=== PATIENT | male | born 1955 | race Caucasian/White ===

== ENCOUNTER → 2018-01-31 10:04 | Outpatient (CLI) | payer OTHER, SELFPAY ==
[2018-01-31 10:33] LABS: Add Manual Diff / Slide Review NO; Basophils Percent Auto 0.1 % (0-2); Eosinophils Percent Auto 1.2 % (2-4); Hematocrit 45.3 % (41-53); Hemoglobin 16.2 g/dL (13.5-17.5); Mean Corpuscular HGB Conc 35.7 % (30-36); Mean Corpuscular Hemoglobin 31.9 PG (26-34); Mean Corpuscular Volume 89.3 fL (80-100); Monocytes Percent Auto 6.5 % (3-14); Neutrophils Absolute Auto 4400 /uL (3000-5900); Neutrophils Percent Auto 63.2 % (50-75); Platelet Count 168 X10^3/uL (150-400); Red Blood Cell Count 5.07 X10^6/uL (4.5-5.9); Red Cell Distribution Width 13.1 % (11.6-14.8)
[2018-01-31 10:44] LABS: Alanine Aminotransferase 33 IU/L (21-72); Albumin 4.2 g/dL (3.5-5.0); Albumin Globulin Ratio 1.7 (1.0-2.8); Alkaline Phosphatase 96 U/L (38-126); Aspartate Aminotransferase 26 IU/L (17-59); BUN Creatinine Ratio 26.7 (6-22); Bilirubin Total 0.7 mg/dL (0.2-1.3); Blood Urea Nitrogen 24 mg/dL (9-20); Calcium 9.2 mg/dL (8.4-10.2); Carbon Dioxide 28 mmol/L (22-32); Chloride 104 mmol/L (98-107); Cholesterol 140 mg/dL (140-199); Estimated Glomerular Filt Rate > 60.0 mL/min (>60); Globulin 2.5 g/dL (1.7-4.1); Glucose 103 mg/dL (80-110); HDL Cholesterol 34 mg/dL (40-60); HEMOLYSIS 29 (0-50); LDL Cholesterol Calculated 63 mg/dL (<100); Potassium 4.3 mmol/L (3.4-5.1); Sodium 141 mmol/L (137-145); Total Protein 6.7 g/dL (6.3-8.2); Triglycerides 215 mg/dL (35-150)
[2018-01-31 11:30] LABS: Thyroid Stimulating Hormone 2.68 uIU/mL (0.47-4.68)
== END ==
PROVIDERS: PCP Family Medicine; Visit Provider Family Medicine
DX: Z00.00 Encounter for general adult medical examination without abnormal findings (principal)
CPT/HCPCS: 36415; 80053; 80061; 84153; 84443; 85025

== ENCOUNTER → 2018-02-14 14:08 | Outpatient (CLI) | payer OTHER, SELFPAY ==
--- NOTE | 2018-02-14 | DI.ECHO.S_ITS ---
[place] [facility]---------+ [facility] +---------+ : : [address] : : : : [id number] : : : : Phone: [phone]+ Echocardiogram Report + + :Name: CANDIE JON Study Date: 02/14/2018 Height: 68 in : :[facility] Weight: 204 lb : : Gender: Male BSA: 2.1 m2 : :: 1955 Age: 63 yrs BP: 168/72 mmHg: :Reason For Study: Cardiomyopathy, Hypertrophic : :Ordering Physician: Carolyn : :Elina Novoa Performed By: Porsche Kee : :Referring: Dr. Devon Delarosa : + + Interpretation Summary 1) Moderate septal hypertrophy (septal thickness 1.8cm, posterior wall thickness 1.0cm) with normal size, wall motion, and systolic function (EF 65- 70%). 2) Normal right ventricular size and function. 3) The left ventricular outflow velocity with valsalva is 2.1 m/s, suggesting a peak LVOT gradient of 18.5mmHg (mild) 4) There is systolic anterior motion of the mitral valve. 5) No significant valvular stenosis or regurgitation prsent. 6) Compared to the Echo done 07/30/2015, no significant change. Procedure: A two-dimensional transthoracic echocardiogram with color flow and Doppler was performed. The study quality was technically adequate. Comparison is made with the echocardiogram of 12-06-16. The heart rate ranged between 44-45 bpm during the study. Left Ventricle: The left ventricle is normal in size. There is moderate asymmetric left ventricular hypertrophy. The left ventricular outflow velocity with valsalva is 2.1 m/s. The ejection fraction is estimated to be 65-70%. Assessment of diastolic parameters suggests a pseudonormalization pattern, consistent with elevated filling pressures. Right Ventricle: The right ventricle grossly appears normal in size with probable normal systolic function. Atria: The left atrium is moderately dilated. Right atrial size is normal. The interatrial septum is intact with no evidence for an atrial septal defect. Mitral Valve: The mitral valve is normal in structure and function. There is systolic anterior motion of the mitral valve. There is trace mitral regurgitation. Aortic Valve: The aortic valve is trileaflet. The aortic valve opens well. There is no aortic valve stenosis. There is mild aortic regurgitation. Tricuspid Valve: The tricuspid valve is normal in structure and function. There is trace tricuspid regurgitation. The right ventricular systolic pressure is estimated at 26 mmHg assuming a right atrial pressure of 3 mm Hg. Pulmonic Valve: The pulmonic valve is normal in structure and function. There is trace pulmonic regurgitation. Great Vessels: The aortic root is normal size. The dimensions of the ascending aorta are normal. The IVC is of normal diameter and collapses greater than 50% with a sniff. This suggests a low right atrial pressure of 3 mm Hg. Pericardium/ Pleura There is no pericardial effusion. There is no pleural effusion. MMode/2D Measurements & Calculations LVIDd: 4.8 cm Ao root diam: 3.4 cm LVIDs: 2.6 cm Aortic Jxn: 2.7 cm FS: 44.5 % asc Aorta Diam: 3.2 cm IVSd: 1.8 cm Ao Arch Diam (Prox Trans): 2.8 cm LVPWd: 1.0 cm LV foster. diameter/BSA (cm/m^2): 2.3 LV sys. diameter/BSA (cm/m^2): 1.3 LA dimension: 4.7 cm RA long axis: 5.3 cm LA A2 area: 25.5 cm2 RA area: 20.9 cm2 LA A4 area: 23.9 cm2 RA vol: 70.5 ml LA length (vol): 6.0 cm RA : 34.2 ml/m2 LA vol: 86.2 ml IVC diam: 2.0 cm LA vol index: 41.8 ml/m2 RVDd major: 5.6 cm RVD1 (basal): 4.4 cm RVD2 (mid): 3.7 cm Doppler Measurements & Calculations Ao V2 max: 182.1 cm/sec MV E max mc: 101.8 cm/sec Ao V2 mean: 118.0 cm/sec MV A max mc: 94.9 cm/sec Ao max P.3 mmHg MV E/A: 1.1 Ao mean P.7 mmHg Med Peak E' Mc: 6.7 cm/sec Ao V2 VTI: 45.8 cm E/E' med: 15.1 Lat Peak E' Mc: 8.0 cm/sec E/E' lat: 12.7 E/e' average: 13.9 MV dec time: 0.25 sec MV P1/2t: 72.7 msec TR max mc: 240.8 cm/sec MV P1/2t max mc: 101.3 cm/sec TR max P.2 mmHg MVA(P1/2t): 3.0 cm2 PA V2 max: 128.0 cm/sec PA V2 mean: 79.9 cm/sec PA mean P.1 mmHg PA Accel Time: 0.17 sec Reading Physician:04:52 PM
== END ==
PROVIDERS: PCP Family Medicine; Visit Provider Internal Medicine Cardiovascular Disease
DX: I42.2 Other hypertrophic cardiomyopathy (principal); I35.1 Nonrheumatic aortic (valve) insufficiency
CPT/HCPCS: 93306

== ENCOUNTER → 2019-01-30 10:27 | Outpatient (CLI) | payer OTHER, SELFPAY ==
[2019-01-30 11:57] LABS: Add Manual Diff / Slide Review NO; Alanine Aminotransferase 44 IU/L (21-72); Albumin 4.2 g/dL (3.5-5.0); Albumin Globulin Ratio 1.6 (1.0-2.8); Alkaline Phosphatase 92 U/L (38-126); Aspartate Aminotransferase 23 IU/L (17-59); BUN Creatinine Ratio 26.3 (6-22); Basophils Absolute Auto 0 /uL (0-100); Basophils Percent Auto 0.2 % (0-2); Blood Urea Nitrogen 21 mg/dL (9-20); Carbon Dioxide 27 mmol/L (22-32); Chloride 108 mmol/L (98-107); Cholesterol 155 mg/dL (140-199); Eosinophils Absolute Auto 100 /uL (0-450); Eosinophils Percent Auto 0.9 % (2-4); Estimated Glomerular Filt Rate > 60.0 mL/min (>60); Globulin 2.6 g/dL (1.7-4.1); Glucose 118 mg/dL (80-110); HDL Cholesterol 42 mg/dL (40-60); HEMOLYSIS < 15 (0-50); Hematocrit 45.8 % (41-53); Hemoglobin 16.2 g/dL (13.5-17.5); LDL Cholesterol Calculated 98 mg/dL (<100); Lymphocytes Absolute Auto 2000 /uL (1100-4500); Lymphocytes Percent Auto 33.9 % (25-40); Mean Corpuscular HGB Conc 35.4 % (30-36); Mean Corpuscular Hemoglobin 31.7 PG (26-34); Mean Corpuscular Volume 89.5 fL (80-100); Monocytes Absolute Auto 400 /uL (0-900); Monocytes Percent Auto 7.1 % (3-14); Neutrophils Absolute Auto 3400 /uL (1500-7000); Neutrophils Percent Auto 57.9 % (50-75); Platelet Count 172 X10^3/uL (150-400); Potassium 4.1 mmol/L (3.4-5.1); Red Blood Cell Count 5.12 X10^6/uL (4.5-5.9); Red Cell Distribution Width 13.3 % (11.6-14.8); Sodium 142 mmol/L (137-145); Total Protein 6.8 g/dL (6.3-8.2); Triglycerides 77 mg/dL (35-150); White Blood Cell Count 5.8 X10^3/uL (4.5-11.0)
[2019-01-30 12:26] LABS: Prostate Specific Antigen Scrn 4.18 ng/mL (0.1-4.0)
== END ==
PROVIDERS: PCP Family Medicine; Visit Provider Family Medicine
DX: N13.8 Other obstructive and reflux uropathy (principal); N40.1 Benign prostatic hyperplasia with lower urinary tract symptoms; Z00.00 Encounter for general adult medical examination without abnormal findings
CPT/HCPCS: 36415; 80053; 80061; 84443; 85025; G0103

== ENCOUNTER → 2019-04-25 08:04 | Outpatient (CLI) | payer OTHER, SELFPAY ==
--- NOTE | 2019-04-25 | DI.ECHO.S_ITS ---
[place] +---------+ [facility] +---------+ : : [address] : : : : [id number] : : : : Phone: [phone]+ Echocardiogram Report + + :Name: CANDIE JON Study Date: 04/25/2019 Height: 68 in : :[facility] Weight: 200 lb : : Gender: Male BSA: 2.0 m2 : :: 1955 Age: 64 yrs BP: 180/84 mmHg: :Reason For Study: Cardiomyopathy, Hypertrophic : :Ordering Physician: Carolyn : :Elina Novoa Performed By: Porsche Kee : :Referring: Dr. Devon Delarosa : + + Interpretation Summary 1) Severe septal hypertrophy (septal thickness 2.2cm, posterior wall thickness 1.1cm) with normal size, wall motion, and systolic function (EF 65-70%). 2) Normal right ventricular size and function. 3) LVOT gradient not done with valsalva but resting LVOT gradient is normal. 4) There is systolic anterior motion of the chordal apparatus 5) No significant valvular stenosis or regurgitation prsent. 6) Compared to the Echo done 02/14/2018, septal thickness has increased from 1.8cm to 2.2 cm on this study. Procedure: A two-dimensional transthoracic echocardiogram with color flow and Doppler was performed. The study quality was technically adequate. Comparison is made with the echocardiogram of 02-14-18. The patient was in normal sinus rhythm during the exam. Left Ventricle: The left ventricle is normal in size. There is severe asymmetric left ventricular hypertrophy. The ejection fraction is estimated to be 65-70%. Diastolic parameters suggest a pseudonormalization pattern, consistent with probable elevated filling pressures. Right Ventricle: The right ventricle grossly appears normal in size with probable normal systolic function. Atria: The left atrium is moderately dilated. The right atrium is mild to moderately dilated. The interatrial septum is intact with no evidence for an atrial septal defect. Mitral Valve: The mitral valve is normal in structure and function. There is systolic anterior motion of the chordal apparatus. There is no mitral regurgitation noted. Aortic Valve: The aortic valve opens well. There is mild aortic valve sclerosis. There is mild aortic regurgitation. Tricuspid Valve: The tricuspid valve is normal in structure and function. There is trace tricuspid regurgitation. The right ventricular systolic pressure is estimated to be at least 34 mmHg based on an estimated right atrial pressure of 3 mm Hg. Pulmonic Valve: The pulmonic valve is normal in structure and function. There is trace pulmonic regurgitation. Great Vessels: The aortic root is normal size. The dimensions of the ascending aorta are normal. The aortic arch is normal in size. The IVC is of normal diameter and collapses greater than 50% with a sniff. This suggests a low right atrial pressure of 3 mm Hg. Pericardium/ Pleura There is no pericardial effusion. There is no pleural effusion. MMode/2D Measurements & Calculations LVIDd: 4.4 cm Ao root diam: 3.6 cm LVIDs: 2.2 cm Aortic Jxn: 2.8 cm FS: 50.8 % asc Aorta Diam: 3.1 cm EPSS: 0.36 cm Ao Arch Diam (Prox Trans): 2.8 cm IVSd: 2.2 cm LVPWd: 1.1 cm LV foster. diameter/BSA (cm/m^2): 2.2 LV sys. diameter/BSA (cm/m^2): 1.1 LA dimension: 4.7 cm RA long axis: 4.9 cm LA A2 area: 25.7 cm2 RA area: 21.3 cm2 LA A4 area: 23.4 cm2 RA vol: 79.7 ml LA length (vol): 5.5 cm RA : 39.0 ml/m2 LA vol: 92.1 ml IVC diam: 1.8 cm LA vol index: 45.1 ml/m2 RVDd major: 5.9 cm RVD1 (basal): 4.8 cm RVD2 (mid): 3.6 cm Doppler Measurements & Calculations Ao V2 max: 190.5 cm/sec MV E max mc: 88.0 cm/sec Ao V2 mean: 137.4 cm/sec MV A max mc: 104.5 cm/sec Ao max P.5 mmHg MV E/A: 0.84 Ao mean P.5 mmHg Med Peak E' Mc: 6.4 cm/sec Ao V2 VTI: 48.0 cm E/E' med: 13.7 Lat Peak E' Mc: 6.7 cm/sec E/E' lat: 13.1 E/e' average: 13.4 MV dec time: 0.23 sec MV P1/2t: 71.9 msec TR max mc: 279.2 cm/sec MV P1/2t max mc: 88.3 cm/sec TR max P.2 mmHg MVA(P1/2t): 3.1 cm2 PA V2 max: 125.2 cm/sec PA V2 mean: 75.6 cm/sec PA mean P.8 mmHg PA Accel Time: 0.12 sec Reading Physician:01:30 PM
== END ==
PROVIDERS: Family Provider Family Medicine; PCP Family Medicine; Visit Provider Internal Medicine Cardiovascular Disease
DX: I35.1 Nonrheumatic aortic (valve) insufficiency (principal); I42.2 Other hypertrophic cardiomyopathy
CPT/HCPCS: 93306

== ENCOUNTER → 2020-02-17 13:01 | Outpatient (CLI) | payer OTHER, SELFPAY ==
--- NOTE | 2020-02-17 13:09 | DIET.PN ---
Dietary Progress Note Assessment: 65y M referred to nutrition for weight management and HTN. pt wants to lose 30#, at 57y started to gain weight after, sitting at desk, long commute, overtime, retired now translating, sometimes can go all day without eating then loads up at night. Usual Day: wakes 730am feels rested uses cpap drinks couple cups coffee c stevia and heavy cream B(11am): scrambled eggs c cheese L(1-2pm): salad (lettuce, carrots, celery, tuna, olive oil, apple cider vinegar, gorgonzola, olives) D: fish and vegetables, grilled chicken, if in a hurry mashed potatoes from [employer] Sn: no salt, mixed nuts etoh: budwiser beer or two last snack is 10pm, falls asleep 1am sleeps 7h per night currently walking on treadmill 60 min (2-3d/w) walk up to run 6- five minute intervals, 3.1mph for second 30min Pt feels best option would be eat at 6pm, do treadmill at 7pm (zuluaga 560kcals with this workout) have free weights and pull up bar in weights but not currently using HT: 5'8 WT: 200# BMI: 30.3 obese We tested pt's body fat percentage today in office was 24.6% which is fair, goal to get between 20-22%. Labs: FBG 111 H, TC WNL Nutrition Diagnosis: obesity r/t physical inactivity and inadequate intake of fruits/veggies aeb pt walks treadmill at best 2-3days per week, consumes 2-3 servings F/V per day, BMI 30.3, pt has HTN. Interventions: 1. Discussed balanced plate method for nutritional adequacy and good health, 1/4 protein, 1/4 complex carbs/starchy veg, 1/2 fruits and veggies. 2. Discussed Hunger Scale, to not wait all day to eat, but to eat when hungry and notice when starting to get hungry so can prepare healthy meal following plate method. 3. Discussed current physical activity routine with goal of cardio (outlined above) 3d/w with strength training 2x/w and stretching daily in am. Monitoring/Evaluations: Pt is scheduled for f/u in 3mo to assess progress.
== END ==
PROVIDERS: Family Provider Family Medicine; PCP Family Medicine; Referring Provider Family Medicine; Visit Provider Family Medicine
DX: E66.9 Obesity, unspecified (principal); I10 Essential (primary) hypertension; Z68.30 Body mass index [BMI] 30.0-30.9, adult; Z71.3 Dietary counseling and surveillance
CPT/HCPCS: 97802

== ENCOUNTER → 2020-04-20 12:51 | Outpatient (CLI) | payer OTHER, SELFPAY ==
[2020-04-20 14:25] LABS: Add Manual Diff / Slide Review NO; Basophils Absolute Auto 0 /uL (0-100); Basophils Percent Auto 0.2 % (0-2); Eosinophils Absolute Auto 100 /uL (0-450); Eosinophils Percent Auto 1.1 % (2-4); Hematocrit 44.6 % (41-53); Hemoglobin 15.9 g/dL (13.5-17.5); Lymphocytes Absolute Auto 2200 /uL (1100-4500); Lymphocytes Percent Auto 30.8 % (25-40); Mean Corpuscular HGB Conc 35.6 % (30-36); Mean Corpuscular Volume 90.1 fL (80-100); Monocytes Absolute Auto 500 /uL (0-900); Monocytes Percent Auto 6.6 % (3-14); Neutrophils Absolute Auto 4300 /uL (1500-7000); Neutrophils Percent Auto 61.3 % (50-75); Platelet Count 166 X10^3/uL (150-400); Red Blood Cell Count 4.95 X10^6/uL (4.5-5.9); Red Cell Distribution Width 13.2 % (11.6-14.8); White Blood Cell Count 7.1 X10^3/uL (4.5-11.0)
[2020-04-20 15:36] LABS: Alanine Aminotransferase 45 IU/L (<50); Albumin 4.1 g/dL (3.5-5.0); Albumin Globulin Ratio 1.6 (1.0-2.8); Alkaline Phosphatase 85 U/L (38-126); Aspartate Aminotransferase 35 IU/L (17-59); BUN Creatinine Ratio 18.2 (6-22); Blood Urea Nitrogen 16 mg/dL (9-20); Calcium 8.9 mg/dL (8.4-10.2); Carbon Dioxide 29 mmol/L (22-32); Chloride 106 mmol/L (98-107); Cholesterol 150 mg/dL (140-199); Estimated Glomerular Filt Rate > 60.0 mL/min (>60); Globulin 2.5 g/dL (1.7-4.1); Glucose 101 mg/dL (80-110); HDL Cholesterol 36 mg/dL (40-60); HEMOLYSIS < 15 (0-50); LDL Cholesterol Calculated 79 mg/dL (<100); Potassium 4.4 mmol/L (3.4-5.1); Sodium 138 mmol/L (137-145); Thyroid Stimulating Hormone 1.66 uIU/mL (0.47-4.68); Total Protein 6.6 g/dL (6.3-8.2); Triglycerides 177 mg/dL (35-150)
[2020-04-20 16:05] LABS: Prostate Specific Antigen Scrn 3.99 ng/mL (0.1-4.0)
== END ==
PROVIDERS: Family Provider Family Medicine; PCP Family Medicine; Referring Provider Family Medicine; Visit Provider Family Medicine
DX: I10 Essential (primary) hypertension (principal); Z12.5 Encounter for screening for malignant neoplasm of prostate
CPT/HCPCS: 36415; 80053; 80061; 84443; 85025; G0103

== ENCOUNTER → 2020-06-18 11:58 | Outpatient (CLI) | payer OTHER, SELFPAY ==
--- NOTE | 2020-06-18 12:03 | DIET.PN ---
Dietary Progress Note 65y M visiting RD for f/u after 4mo for assistance c weight loss. Pt reports not being able to consistently follow his plan secondary to overwork. Pt wakes up and starts working before his first cup of coffee and often does not stop until 6-7pm. Pt feels his job is rewarding, enjoyable, and intellectually stimulating, but he doesn't take time to prepare himself lunch or stop early enough each day to fit in his workout. He works project based so once one is done he jumps right into the next. Pt reports he enjoys his workout but it takes an hour so is not feasible to do after dinner when he is currently eating around 8pm. Pt is missing his usual lunchtime salad as he works through lunch hour. Pt feels his stools have changed because of the lower fiber diet and is interested in a detox program. Encouraged pt to focus more on self-care, to create a daily schedule where he can give himself enough time for lunch and stopping by 5pm for an earlier dinner so he has the time he needs for a workout. Discussed lungs, skin, and liver as detox organs. Encouraged pt to commit to his workouts as deep breathing and sweating are detoxifying. Provided pt handout on liver supportive foods including a variety of fresh vegetables. Pt feels posting his 6 month goal at his work station to see it daily along with creating a daily schedule will help him stay accountable to his health and vitality goals. He will focus on exercise and a daily salad to support his health and natural detoxification. f/u in 6mo to assess progress and problem solve barriers.
== END ==
PROVIDERS: Family Provider Family Medicine; PCP Family Medicine; Referring Provider Family Medicine; Visit Provider Family Medicine
DX: E66.9 Obesity, unspecified (principal); Z71.3 Dietary counseling and surveillance
CPT/HCPCS: 97803

== ENCOUNTER → 2021-02-02 09:13 | Outpatient (CLI) | payer OTHER, SELFPAY ==
[2021-02-02 13:47] LABS: COVID19 -Nasal RAPID Negative (Negative)
== END ==
PROVIDERS: Family Provider Family Medicine; PCP Family Medicine; Referring Provider Student in an Organized Health Care Education/Training Program; Visit Provider Student in an Organized Health Care Education/Training Program
DX: R05 Cough (principal); Z20.822 Contact with and (suspected) exposure to COVID-19
CPT/HCPCS: 87635

== ENCOUNTER → 2021-06-06 09:55 | Outpatient (CLI) | payer OTHER, SELFPAY ==
[2021-06-06 13:47] LABS: Alanine Aminotransferase 51 IU/L (<50); Albumin Globulin Ratio 1.8 (1.0-2.8); Alkaline Phosphatase 98 U/L (38-126); Aspartate Aminotransferase 29 IU/L (17-59); BUN Creatinine Ratio 18.5 (6-22); Bilirubin Total 0.6 mg/dL (0.2-1.3); Blood Urea Nitrogen 17 mg/dL (9-20); Calcium 9.3 mg/dL (8.4-10.2); Carbon Dioxide 31 mmol/L (22-32); Chloride 104 mmol/L (98-107); Cholesterol 139 mg/dL (140-199); Estimated Glomerular Filt Rate > 60.0 mL/min (>60); Globulin 2.2 g/dL (1.7-4.1); Glucose 113 mg/dL (80-110); HDL Cholesterol 39 mg/dL (40-60); HEMOLYSIS < 15 (0-50); LDL Cholesterol Calculated 86 mg/dL (<100); Potassium 4.9 mmol/L (3.4-5.1); Sodium 140 mmol/L (137-145); Total Protein 6.2 g/dL (6.3-8.2); Triglycerides 68 mg/dL (35-150)
[2021-06-06 14:08] LABS: Prostate Specific Antigen Scrn 4.24 ng/mL (0.1-4.0)
== END ==
PROVIDERS: Family Provider Family Medicine; PCP Internal Medicine; Referring Provider Internal Medicine; Visit Provider Internal Medicine
DX: I10 Essential (primary) hypertension (principal); N13.8 Other obstructive and reflux uropathy; N40.1 Benign prostatic hyperplasia with lower urinary tract symptoms; R01.1 Cardiac murmur, unspecified; Z12.5 Encounter for screening for malignant neoplasm of prostate
CPT/HCPCS: 36415; 80053; 80061; G0103

== ENCOUNTER → 2022-06-06 08:37 | Outpatient (CLI) | payer MEDICARE, OTHER, SELFPAY ==
[2022-06-06 10:06] LABS: HEMOLYSIS < 15 (0-50)
[2022-06-06 10:14] LABS: Alanine Aminotransferase 37 IU/L (<50); Albumin Globulin Ratio 1.7 (1.0-2.8); Alkaline Phosphatase 103 U/L (38-126); Aspartate Aminotransferase 27 IU/L (17-59); BUN Creatinine Ratio 20.7 (6-22); Bilirubin Total 0.8 mg/dL (0.2-1.3); Blood Urea Nitrogen 18 mg/dL (9-20); Calcium 9.2 mg/dL (8.4-10.2); Carbon Dioxide 29 mmol/L (22-32); Chloride 104 mmol/L (98-107); Estimated Glomerular Filt Rate > 60 mL/min (>60); Globulin 2.4 g/dL (1.7-4.1); Glucose 114 mg/dL (80-110); Potassium 4.4 mmol/L (3.4-5.1); Sodium 139 mmol/L (137-145); Total Protein 6.4 g/dL (6.3-8.2)
[2022-06-06 16:57] LABS: Prostate Specific Antigen 5.31 ng/mL (0.10-4.00)
== END ==
PROVIDERS: Family Provider Family Medicine; PCP Internal Medicine; Referring Provider Internal Medicine; Visit Provider Internal Medicine
DX: R97.20 Elevated prostate specific antigen [PSA] (principal); I10 Essential (primary) hypertension; Z79.899 Other long term (current) drug therapy
CPT/HCPCS: 36415; 80053; 84153

== ENCOUNTER 2022-06-06 18:17 | Emergency (ER) | payer MEDICARE, OTHER, SELFPAY ==
--- NOTE | 2022-06-06 18:25 | DI.RAD.S_ITS ---
PROCEDURE: XR CHEST 1V INDICATIONS: chest pain TECHNIQUE: One view of the chest was acquired. COMPARISON: [facility], , CHEST 1 VIEW, 02/22/2017, 1:18. FINDINGS: Surgical changes and devices: None. Lungs and pleura: No acute consolidation. Linear opacities in the lung bases are redemonstrated likely representing atelectasis or scarring. No pleural effusions or pneumothorax. Mediastinum: Mediastinal contours appear normal. Heart size is normal. Bones and chest wall: No suspicious bony lesions. Overlying soft tissues appear unremarkable. IMPRESSION: 1. No acute cardiopulmonary disease. Dictated by: Jimi Sethi M.D. on 06/06/2022 at 20:57 Approved by: Jimi Sethi M.D. on 06/06/2022 at 21:01
[2022-06-06 18:27] VITALS: BP 213/98; PULSE 47; RESP 16; TEMP 36.4; O2SAT 98; BMI 31.3
[2022-06-06 19:24] LABS: Add Manual Diff / Slide Review NO; Basophils Absolute Auto 0 /uL (0-100); Basophils Percent Auto 0.4 % (0-2); Eosinophils Absolute Auto 100 /uL (0-450); Eosinophils Percent Auto 1.2 % (2-4); Hematocrit 45.4 % (41-53); Hemoglobin 16.1 g/dL (13.5-17.5); Lymphocytes Absolute Auto 2400 /uL (1100-4500); Lymphocytes Percent Auto 29.9 % (25-40); Mean Corpuscular HGB Conc 35.4 % (30-36); Mean Corpuscular Hemoglobin 31.4 PG (26-34); Mean Corpuscular Volume 88.9 fL (80-100); Monocytes Absolute Auto 500 /uL (0-900); Monocytes Percent Auto 5.6 % (3-14); Neutrophils Absolute Auto 5200 /uL (1500-7000); Neutrophils Percent Auto 62.9 % (50-75); Platelet Count 190 X10^3/uL (150-400); Red Blood Cell Count 5.11 X10^6/uL (4.5-5.9); Red Cell Distribution Width 13.6 % (11.6-14.8); White Blood Cell Count 8.2 X10^3/uL (4.5-11.0)
[2022-06-06 19:26] LABS: Alanine Aminotransferase 42 IU/L (<50); Albumin 4.6 g/dL (3.5-5.0); Albumin Globulin Ratio 1.6 (1.0-2.8); Alkaline Phosphatase 120 U/L (38-126); Aspartate Aminotransferase 38 IU/L (17-59); BUN Creatinine Ratio 21.3 (6-22); Bilirubin Total 0.8 mg/dL (0.2-1.3); Blood Urea Nitrogen 16 mg/dL (9-20); Calcium 9.3 mg/dL (8.4-10.2); Carbon Dioxide 25 mmol/L (22-32); Chloride 104 mmol/L (98-107); Creatine Kinase 113 U/L (55-170); Estimated Glomerular Filt Rate > 60 mL/min (>60); Globulin 2.8 g/dL (1.7-4.1); Glucose 91 mg/dL (80-110); Lipase 58 U/L (23-300); Magnesium 2.2 mg/dL (1.6-2.3); Potassium 4.1 mmol/L (3.4-5.1); Sodium 138 mmol/L (137-145); Total Protein 7.4 g/dL (6.3-8.2)
[2022-06-06 19:34] LABS: NT-proBNP (BNP-Adult 18+) 551 pg/mL (<125)
[2022-06-06 19:35] LABS: INR 1.1 (0.9-1.3); Prothrombin Time 12.4 SECONDS (10.1-12.7)
[2022-06-06 19:37] LABS: Troponin I 0.013 ng/mL (0.01-0.034)
[2022-06-06 19:38] LABS: PTT Partial Thromboplastin Tim 28 SECONDS (26-36)
[2022-06-06 19:40] LABS: CKMB % Relative Index 3.4 % (1.5-5.0); Creatine Kinase MB 3.81 ng/mL (<2.37); HEMOLYSIS 39 (0-50)
[2022-06-06 21:07] LABS: Bacteria Urine Occasional (0-1); Culture Indicated Urine Cult Not Indicated; RBC Urine None Seen (0-5/HPF); Squamous Epithelial Cell Urine None Seen (0-5/HPF); WBC Urine None Seen (0-5/HPF)
[2022-06-06 21:17] VITALS: BP 208/83; PULSE 68
--- NOTE | 2022-06-06 21:55 | ED.GENADULT ---
HPI - General Adult General Chief complaint: Hypertension Stated complaint: Left Arm Pain/Nauseous/High BP Time Seen by Provider: 06/06/22 21:55 History of Present Illness HPI narrative: 67-year-old gentleman with history of hypertension and hypertrophic cardiomyopathy has been doing well, notes that he had COVID approximately 6 weeks ago with symptoms entirely resolved at this point. Presents complaining of left arm pain that has been bothering him for about 3 weeks today he was ?poking around in my armpit? and found a sore spot. It is not related to exertion position, neck position and is reproducible with palpation but not with motion otherwise. He complains of mild tenderness in the biceps and into the elbow. Because of the pain, he took his blood pressure and noted it to be quite elevated this concerned him and prompted the ER visit. He did take his usual evening losartan prior to presentation in the emergency department along with 2 aspirin. He notes no overt chest pain, cough, dyspnea, orthopnea, headaches, abdominal pain, vomiting, diarrhea, lower extremity edema. Related Data Previous Rx's Medication Instructions Recorded mometasone 0.1 % topical solution See Rx Instructions topical BID 06/07/21 #60 mL erythromycin 5 mg/gram (0.5 %) eye See Rx Instructions .Route 02/28/22 ointment .COMPLEX #3.5 grams losartan 50 mg tablet 50 mg PO DAILY #90 tabs 05/18/22 Allergies Allergy/AdvReac Type Severity Reaction Status Date / Time No Known Drug Allergies Allergy Verified 06/06/22 18:31 Review of Systems Review of Systems Narrative: Remainder of complete review of systems is otherwise unremarkable except for that included in the HPI. Patient History Medical History (Updated 06/06/22 @ 22:31 by Lidia Gallagher MD) Benign prostatic hyperplasia with urinary obstruction (10/12/16) Body mass index (BMI) of 30.0 to 30.9 in adult (10/12/16) COVID-19 (~04/2021) Elevated PSA Essential hypertension Heart murmur (07/22/15) Hyperglycemia Sleep apnea Social History Smoking Status: Former smoker Smoking Status: Former smoker alcohol intake frequency: a few times a week Substance Use Type: does not use Exam Initial Vital Signs Initial Vital Signs: Vital Signs Temperature 97.6 F 06/06/22 18:27 Pulse Rate 47 L 06/06/22 18:27 Respiratory Rate 16 06/06/22 18:27 Blood Pressure 213/98 H 06/06/22 18:27 Pulse Oximetry 98 06/06/22 18:27 Oxygen Delivery Method 06/06/22 18:27 General: Healthy appearing, in no acute distress. Able to give a complete and coherent history. Well-nourished well-developed HEENT: Moist mucous membranes, normal sclera with reactive pupils, Neck: No JVD, supple, no cervical spine tenderness Respiratory: Lungs are clear to auscultation, no wheezing no rales no rhonchi. Full and symmetrical air movement. He complained of a point tender spot left mid axillary line approximately the level of his nipple that is now not bothering him Cardiac: Regular rate and rhythm no murmurs no bruits Abdomen: Soft, nontender, good bowel tones, no flank pain Skin: Warm and dry, no rashes Neurologic: Grossly neurologically intact with no obvious asymmetries or abnormalities Extremities: No trauma, well perfused. Left arm and shoulder are neurovascularly intact. He has some minor tenderness at the shoulder joint with abduction and external rotation. Elbow and wrist are nontender and have full range of motion. Psych: Cooperative, appropriate insight and affect Course Orders Ordered: ED Orders 06/06/22 18:25 XR chest 1V Stat COVID19 -Nasal RAPID/Pre-Proc Stat EKG-12 Lead Stat 06/06/22 18:52 BNP [NT-proBNP (BNP-Adult 18+)] Stat Complete Blood Count AUTO DIFF Stat Comprehensive Metabolic Panel Stat Lipase Stat Magnesium Stat Partial Thromboplastin Time Stat Prothrombin Time INR Stat Troponin & CK Cardiac Panel Stat 06/06/22 20:47 Urine Microscopic Stat Discontinued Medications Aspirin (Aspirin 81 Mg Chew Tab) 324 mg PO NOW ONE Stop: 06/06/22 18:26 Last Admin: 06/06/22 18:32 Dose: Not Given Documented By: [facility] Vital Signs Vital signs: Vital Signs - 8 hr 06/06/22 18:27 06/06/22 21:17 Temperature 97.6 F Pulse Rate 47 L 68 Respiratory Rate 16 Blood Pressure 213/98 H 208/83 H Pulse Oximetry 98 Oxygen Delivery Method Room Air Medical Decision Making Lab Data Result diagrams: 06/06/22 18:52 06/06/22 18:52 Labs: Lab Results 06/06/22 06/06/22 06/06/22 Range/Units 18:52 18:52 18:52 WBC 8.2 (4.5-11.0) X10^3/uL RBC 5.11 (4.5-5.9) X10^6/uL Hgb 16.1 (13.5-17.5) g/dL Hct 45.4 (41-53) % MCV 88.9 (80-100) fL MCH 31.4 (26-34) PG MCHC 35.4 (30-36) % RDW 13.6 (11.6-14.8) % Plt Count 190 (150-400) X10^3/uL Neut % (Auto) 62.9 (50-75) % Lymph % (Auto) 29.9 (25-40) % Floyd % (Auto) 5.6 (3-14) % Eos % (Auto) 1.2 L (2-4) % Baso % (Auto) 0.4 (0-2) % Neut # (Auto) 5200 (6268-1775) /uL Lymph # (Auto) 2400 (9166-1233) /uL Floyd # (Auto) 500 (0-900) /uL Eos # (Auto) 100 (0-450) /uL Baso # (Auto) 0 (0-100) /uL PT 12.4 (10.1-12.7) SECONDS INR 1.1 (0.9-1.3) APTT 28 (26-36) SECONDS Sodium 138 (137-145) mmol/L Potassium 4.1 (3.4-5.1) mmol/L Chloride 104 (98-107) mmol/L Carbon Dioxide 25 (22-32) mmol/L BUN 16 (9-20) mg/dL Creatinine 0.75 (0.66-1.25) mg/dL Estimated GFR > 60 (>60) mL/min BUN/Creatinine Ratio 21.3 (6-22) Glucose 91 (80-110) mg/dL Calcium 9.3 (8.4-10.2) mg/dL Magnesium 2.2 (1.6-2.3) mg/dL Total Bilirubin 0.8 (0.2-1.3) mg/dL AST 38 (17-59) IU/L ALT 42 (<50) IU/L Alkaline Phosphatase 120 (38-126) U/L Total Creatine Kinase 113 (55-170) U/L CK-MB (CK-2) 3.81 H (<2.37) ng/mL CK-MB (CK-2) Rel Index 3.4 (1.5-5.0) % Troponin I 0.013 (0.01-0.034) ng/mL NT-Pro-B Natriuret Pep (<125) pg/mL Total Protein 7.4 (6.3-8.2) g/dL Albumin 4.6 (3.5-5.0) g/dL Globulin 2.8 (1.7-4.1) g/dL Albumin/Globulin Ratio 1.6 (1.0-2.8) Lipase 58 (23-300) U/L Urine RBC (0-5/HPF) Urine WBC (0-5/HPF) Ur Squamous Epith Cells (0-5/HPF) Urine Bacteria (None) Ur Culture Indicated? 06/06/22 06/06/22 Range/Units 18:52 20:47 WBC (4.5-11.0) X10^3/uL RBC (4.5-5.9) X10^6/uL Hgb (13.5-17.5) g/dL Hct (41-53) % MCV (80-100) fL MCH (26-34) PG MCHC (30-36) % RDW (11.6-14.8) % Plt Count (150-400) X10^3/uL Neut % (Auto) (50-75) % Lymph % (Auto) (25-40) % Floyd % (Auto) (3-14) % Eos % (Auto) (2-4) % Baso % (Auto) (0-2) % Neut # (Auto) (9073-5528) /uL Lymph # (Auto) (4960-8008) /uL Floyd # (Auto) (0-900) /uL Eos # (Auto) (0-450) /uL Baso # (Auto) (0-100) /uL PT (10.1-12.7) SECONDS INR (0.9-1.3) APTT (26-36) SECONDS Sodium (137-145) mmol/L Potassium (3.4-5.1) mmol/L Chloride (98-107) mmol/L Carbon Dioxide (22-32) mmol/L BUN (9-20) mg/dL Creatinine (0.66-1.25) mg/dL Estimated GFR (>60) mL/min BUN/Creatinine Ratio (6-22) Glucose (80-110) mg/dL Calcium (8.4-10.2) mg/dL Magnesium (1.6-2.3) mg/dL Total Bilirubin (0.2-1.3) mg/dL AST (17-59) IU/L ALT (<50) IU/L Alkaline Phosphatase (38-126) U/L Total Creatine Kinase (55-170) U/L CK-MB (CK-2) (<2.37) ng/mL CK-MB (CK-2) Rel Index (1.5-5.0) % Troponin I (0.01-0.034) ng/mL NT-Pro-B Natriuret Pep 551 H (<125) pg/mL Total Protein (6.3-8.2) g/dL Albumin (3.5-5.0) g/dL Globulin (1.7-4.1) g/dL Albumin/Globulin Ratio (1.0-2.8) Lipase (23-300) U/L Urine RBC None seen (0-5/HPF) Urine WBC None seen (0-5/HPF) Ur Squamous Epith Cells None seen (0-5/HPF) Urine Bacteria Occasional (0-1) (None) Ur Culture Indicated? Cult not indicated Urine Dip Bedside Urine Glucose Negative Bedside Urine Bilirubin - Negative Bedside Urine Ketone - Negative Urine Specific [place] 1.005 Bedside Urine Occult Blood - Negative Bedside Urine pH 6.0 Bedside Urine Protein - Negative Bedside Urine Urobilinogen - Negative Bedside Urine Nitrite - Negative Bedside Urine Leukocytes - Negative Esterase Point of care testing: Urine Dip Bedside Urine Glucose Negative Bedside Urine Bilirubin - Negative Bedside Urine Ketone - Negative Urine Specific [place] 1.005 Bedside Urine Occult Blood - Negative Bedside Urine pH 6.0 Bedside Urine Protein - Negative Bedside Urine Urobilinogen - Negative Bedside Urine Nitrite - Negative Bedside Urine Leukocytes - Negative Esterase Imaging Data Chest x-ray: Radiologist's Impression: ? FINDINGS:? ? Surgical changes and devices:? None.? ? Lungs and pleura:? No acute consolidation.? Linear opacities in the lung bases are redemonstrated likely representing atelectasis or scarring.? No pleural effusions or pneumothorax.? ? Mediastinum:? Mediastinal contours appear normal.? Heart size is normal.? ? Bones and chest wall:? No suspicious bony lesions.? Overlying soft tissues appear unremarkable.? ? IMPRESSION:? ? 1. No acute cardiopulmonary disease.? ? ? Dictated by: Jimi Sethi M.D. on 06/06/2022 at 20:57 ? ? ECG Data Interpretation: Sinus bradycardia at a rate of 48 No acute ischemic changes Leftward axis MDM Narrative Medical decision making narrative: 67-year-old gentleman with hypertension and hypertrophic cardiomyopathy presents with left shoulder pain that has been present for 3 weeks was bothering him enough tonight with some mild nausea that he checked his blood pressure found to be quite elevated. He did take his 50 mg of losartan. It did bring the numbers down slightly however still somewhat elevated at time of discharge. There is no evidence of acute coronary syndrome, dissection, vascular occlusion or infection. I suspect that this is a musculoskeletal joint issue and may well benefit from physical therapy. He actually has a physical scheduled with his primary care doctor in 2 days. Asked him to check blood pressures in the interval, discuss his shoulder pain with Dr. Reed and see if a physical therapy referral might be of benefit. At this time he is safe for discharge home Discharge Plan Departure Patient Disposition: Home Clinical Impression: Acute pain of left shoulder Hypertension Qualifiers: Hypertension type: primary hypertension Qualified Code(s): I10 - Essential (primary) hypertension Instructions: DI for High Blood Pressure Activity Restrictions/Additional Instructions: Thank you for coming in today Your lab and cardiac workup was very reassuring. I do not think this pain is related to your heart. I do think that you may benefit from physical therapy with your shoulder to see if you can work passed the pain that you are experiencing there. Please discuss this with your primary care doctor. If you find that you are getting worse or develop any new symptoms, please feel free to return to the emergency department for further evaluation. Prescriptions: No Action erythromycin 5 mg/gram (0.5 %) ointment See Rx Instructions .ROUTE .COMPLEX Qty: 3.5 0RF Rx Instructions: apply to affected eye three times a day for 10 days losartan 50 mg tablet 50 mg PO DAILY Qty: 90 0RF Rx Instructions: PATIENT DUE FOR APPT W/PCP PRIOR TO END OF RX/FUTURE FILLS. PLEASE CALL TO SCHEDULE APPT. THANKS 05/18/22. mometasone 0.1 % solution See Rx Instructions topical BID Qty: 60 0RF Rx Instructions: 4 drops topical twice a day in ear. Referrals: Silvio Reed MD [Primary Care Provider] -
[2022-06-06 22:38] VITALS: BP 205/95; PULSE 45
[2022-06-06 22:39] VITALS: BP 213/95; PULSE 49; RESP 20; O2SAT 99
--- NOTE | 2022-06-06 22:45 | PC.NURSE ---
pt c/o left shoulder pain, more pain on movement with arm elevated.
== END 2022-06-06 22:40 | disposition home or self-care (01) ==
PROVIDERS: Emergency Provider Emergency Medicine; Family Provider Family Medicine; PCP Internal Medicine
DX: M25.512 Pain in left shoulder (principal); I10 Essential (primary) hypertension; R07.9 Chest pain, unspecified; R97.20 Elevated prostate specific antigen [PSA]; Z79.899 Other long term (current) drug therapy
CPT/HCPCS: 36415; 71045; 80053; 81003; 81015; 82550; 82553; 83690; 83735; 83880; 84153; 84484; 85025; 85610; 85730; 93005; 93010; 99284

== ENCOUNTER → 2022-09-08 10:19 | Outpatient (CLI) | payer MEDICARE, OTHER, SELFPAY ==
[2022-09-08 11:54] LABS: Cholesterol 152 mg/dL (140-199); HDL Cholesterol 40 mg/dL (40-60); LDL Cholesterol Calculated 97 mg/dL (<100); Triglycerides 73 mg/dL (35-150)
== END ==
PROVIDERS: Family Provider Family Medicine; PCP Internal Medicine; Referring Provider Internal Medicine Cardiovascular Disease; Visit Provider Internal Medicine Cardiovascular Disease
DX: I10 Essential (primary) hypertension (principal)
CPT/HCPCS: 36415; 80061

== ENCOUNTER → 2022-11-02 06:45 | Outpatient (CLI) | payer MEDICARE, OTHER, SELFPAY ==
--- NOTE | 2022-11-02 | DI.ECHO.S_ITS ---
[facility]---------+ [facility] +---------+ : : [address] : : : : [id number] : : : : Phone: [phone]+ Echocardiogram Report + + :Name: CANDIE JON Study Date: 11/02/2022 Height: 68 in : :[facility] ReadingLocation: Weight: 205 lb : : Gender: Male BSA: 2.1 m2 : :: 1955 Age: 67 yrs BP: 172/78 mmHg: :Reason For Study: HYPERTROPHIC CARDIOMYOPATHY : :Ordering Physician: BENITO, : :MING Performed By: Stacy Padilla : :Referring: MING NOVOA : + + Interpretation Summary 1) Severe septal hypertrophy (septal thickness 2.0cm, posterior wall thickness 1.1cm) with normal size, wall motion, and systolic function (EF 65-70%). 2) Normal right ventricular size and function. 3) There is no echo evidence for significant left ventricular outflow tract obstruction. 4) There is systolic anterior motion of the chordal apparatus 5) No significant valvular stenosis or regurgitation prsent. 6) Compared to the Echo done 04/25/2019, no significant change. Procedure: A two-dimensional transthoracic echocardiogram with color flow and Doppler was performed. The study quality was technically adequate. Comparison is made with the echocardiogram of 04/25/2019. The patient was in sinus bradycardia with heart rates between 41-47 bpm during the exam. Left Ventricle: The left ventricle is normal in size. There is severe asymmetric left ventricular hypertrophy. There is no echo evidence for significant left ventricular outflow tract obstruction. The ejection fraction is estimated to be 65-70%. Left ventricular systolic function appears normal without focal wall motion abnormalities. Diastolic parameters suggest a pseudonormalization pattern, consistent with probable elevated filling pressures. Right Ventricle: The right ventricle is mildly dilated. The right ventricular systolic function is normal. Atria: The left atrium is moderately dilated. The right atrium is mildly dilated. There is no Doppler evidence for an interatrial shunt. Mitral Valve: There is a flat closure plane of the the mitral valve leaflets. The mitral valve leaflets appear mildly thickened, but open well. There is systolic anterior motion of the chordal apparatus. There is mild mitral regurgitation. Aortic Valve: The aortic valve is trileaflet. The aortic valve opens well. There is no aortic valve stenosis. There is mild aortic regurgitation. Tricuspid Valve: The tricuspid valve is normal in structure and function. There is mild tricuspid regurgitation. The right ventricular systolic pressure is estimated to be at least 21 mmHg based on an estimated right atrial pressure of 3 mm Hg. Pulmonic Valve: The pulmonic valve leaflets are thin and pliable; valve motion is normal. There is mild pulmonic regurgitation. Great Vessels: The aortic root is normal size. The dimensions of the ascending aorta are normal. The IVC is of normal diameter and collapses greater than 50% with a sniff. This suggests a low right atrial pressure of 3 mm Hg. Pericardium/ Pleura There is no pericardial effusion. There is no pleural effusion. MMode/2D Measurements & Calculations LVIDd: 4.7 cm LVOT diam: 2.1 cm LVIDs: 2.9 cm Ao root diam: 2.9 cm FS: 38.1 % asc Aorta Diam: 3.4 cm EPSS: 0.57 cm Ao Arch Diam (Prox Trans): 2.9 cm IVSd: 2.0 cm LVPWd: 0.92 cm LV foster. diameter/BSA (cm/m^2): 2.3 LV sys. diameter/BSA (cm/m^2): 1.4 LA A2 area: 27.0 cm2 RA long axis: 5.5 cm LA A4 area: 22.3 cm2 RA area: 21.6 cm2 LA length (vol): 6.1 cm RA vol: 72.5 ml LA vol: 83.3 ml RA : 35.1 ml/m2 LA vol index: 40.3 ml/m2 IVC diam: 1.4 cm RVD1 (basal): 4.2 cm RVD2 (mid): 3.6 cm TAPSE: 2.2 cm Doppler Measurements & Calculations Ao V2 max: 154.5 cm/sec LVOT Max Mc: 133.4 cm/sec Ao V2 mean: 120.5 cm/sec LV V1 max P.1 mmHg Ao max P.5 mmHg LV V1 VTI: 36.2 cm Ao mean P.2 mmHg LANIE(I,D): 3.2 cm2 Ao V2 VTI: 39.4 cm LANIE(V,D): 3.0 cm2 sev ratio: 0.92 LANIE indexed to BSA (cm^2/m^2): 1.5 MV E max mc: 96.7 cm/sec TR max mc: 213.6 cm/sec MV A max mc: 100.0 cm/sec TR max P.3 mmHg MV E/A: 0.97 PA V2 max: 134.7 cm/sec Med Peak E' Mc: 5.8 cm/sec PA V2 mean: 96.7 cm/sec E/E' med: 16.7 PA mean P.1 mmHg Lat Peak E' Mc: 7.0 cm/sec PA pr(Accel): 25.9 mmHg E/E' lat: 13.9 E/e' average: 15.3 MV dec time: 0.27 sec SV(LVOT): 124.4 ml Reading Physician:04:14 PM
== END ==
PROVIDERS: Family Provider Family Medicine; PCP Internal Medicine; Referring Provider Internal Medicine Cardiovascular Disease; Visit Provider Internal Medicine Cardiovascular Disease
DX: I42.2 Other hypertrophic cardiomyopathy (principal); I08.3 Combined rheumatic disorders of mitral, aortic and tricuspid valves
CPT/HCPCS: 93306

== ENCOUNTER → 2022-12-28 13:44 | Outpatient (CLI) | payer MEDICARE, OTHER, SELFPAY | PROVIDERS: Family Provider Internal Medicine; PCP Internal Medicine; Referring Provider Internal Medicine; Visit Provider Internal Medicine | DX: R97.20 Elevated prostate specific antigen [PSA] (principal) | CPT/HCPCS: 36415; 84153 ==

== ENCOUNTER → 2023-07-17 10:34 | Outpatient (CLI) | payer MEDICARE, SELFPAY ==
--- NOTE | 2023-07-17 10:36 | DI.RAD.S_ITS ---
PROCEDURE: XR PELVIS 1-2V INDICATIONS: low back pain TECHNIQUE: Single view(s) of the pelvis acquired. COMPARISON: None. FINDINGS: Bones: No fractures or dislocations. No suspicious bony lesions. Mild symmetric hip joint space loss. Soft tissues: Visualized bowel gas pattern is normal. No suspicious soft tissue calcifications. IMPRESSION: No acute bony abnormality. Mild symmetric hip joint degeneration. Dictated by: Dottie Cordoba M.D. on 07/17/2023 at 15:59 Approved by: Dottie Cordoba M.D. on 07/17/2023 at 15:59
--- NOTE | 2023-07-17 10:36 | DI.RAD.S_ITS ---
PROCEDURE: XR LUMBAR SPINE MIN 4V INDICATIONS: low back pain TECHNIQUE: 5 views of the lumbar spine were acquired, including bilateral oblique views. COMPARISON: None. FINDINGS: Bones: 5 [id number] vertebral bodies are present. No vertebral body fractures. Trace anterolisthesis L2-3 and trace retrolisthesis L4-5 and L5-S1. Moderate to severe and severe disc height loss at L4-5 and L5-S1. Degenerative superior disc height loss L4 with anterior endplate spur formation. Soft tissues: Overlying bowel gas pattern is normal. No suspicious soft tissue calcifications. Oblique images: No pars defects. IMPRESSION: 1. Moderate to severe L4-5 and L5-S1 disc height loss, most severe at L5-S1. 2. Trace multilevel spondylolisthesis as described. Dictated by: Dottie Cordoba M.D. on 07/17/2023 at 15:57 Approved by: Dottie Cordoba M.D. on 07/17/2023 at 15:59
[2023-07-17 11:43] LABS: Add Manual Diff / Slide Review NO; Basophils Absolute Auto 0 /uL (0-100); Basophils Percent Auto 0.3 % (0-2); Eosinophils Absolute Auto 0 /uL (0-450); Eosinophils Percent Auto 0.8 % (2-4); Hematocrit 44.7 % (41-53); Hemoglobin 15.7 g/dL (13.5-17.5); Lymphocytes Absolute Auto 1700 /uL (1100-4500); Lymphocytes Percent Auto 26.9 % (25-40); Mean Corpuscular Volume 88.5 fL (80-100); Monocytes Absolute Auto 400 /uL (0-900); Neutrophils Absolute Auto 4100 /uL (1500-7000); Platelet Count 171 X10^3/uL (150-400); Red Blood Cell Count 5.05 X10^6/uL (4.5-5.9); Red Cell Distribution Width 13.4 % (11.6-14.8); White Blood Cell Count 6.3 X10^3/uL (4.5-11.0)
[2023-07-17 11:51] LABS: HEMOLYSIS < 15 (0-50); Iron 99 ug/dL (49-181)
[2023-07-17 11:56] LABS: Alanine Aminotransferase 32 IU/L (<50); Albumin 4.3 g/dL (3.5-5.0); Albumin Globulin Ratio 1.7 (1.0-2.8); Alkaline Phosphatase 85 U/L (38-126); Aspartate Aminotransferase 28 IU/L (17-59); Blood Urea Nitrogen 16 mg/dL (9-20); Calcium 9.4 mg/dL (8.4-10.2); Carbon Dioxide 26 mmol/L (22-32); Chloride 104 mmol/L (98-107); Estimated Glomerular Filt Rate > 60 mL/min (>60); Globulin 2.6 g/dL (1.7-4.1); Glucose 102 mg/dL (80-110); HEMOLYSIS < 15 (0-50); Magnesium 2.3 mg/dL (1.6-2.3); Potassium 4.1 mmol/L (3.4-5.1); Sodium 138 mmol/L (137-145); Total Protein 6.9 g/dL (6.3-8.2)
[2023-07-17 12:01] LABS: Percent Iron Saturation 37 % (20-50); Total Iron Binding Capacity 267 ug/dL (261-462); Transferrin 225 mg/dL (206-381)
[2023-07-17 12:20] LABS: Prostate Specific Antigen 5.24 ng/mL (0.10-4.00)
[2023-07-17 12:21] LABS: TSH w/ Reflex to FT4 1.83 uIU/mL (0.47-4.68)
[2023-07-17 12:39] LABS: Vitamin B12 761 pg/mL (239-931)
== END ==
LOC: RAD 10:35
PROVIDERS: Family Provider Internal Medicine; PCP Internal Medicine; Referring Provider Internal Medicine; Visit Provider Internal Medicine
DX: M16.0 Bilateral primary osteoarthritis of hip (principal); M54.50 Low back pain, unspecified; I10 Essential (primary) hypertension; Z00.00 Encounter for general adult medical examination without abnormal findings; R97.20 Elevated prostate specific antigen [PSA]; E55.9 Vitamin D deficiency, unspecified
CPT/HCPCS: 36415; 72110; 72170; 80053; 82607; 83540; 83550; 83735; 84153; 84443; 85025

== ENCOUNTER → 2023-09-21 08:16 | Outpatient (CLI) | payer MEDICARE, SELFPAY ==
--- NOTE | 2023-09-21 08:17 | DI.MRI.S_ITS ---
PROCEDURE: MR LUMBAR SPINE WO CON INDICATIONS: Progressive axial low back pain TECHNIQUE: Noncontrast sagittal T1 spin echo and T2 fast echo, sagittal STIR, and T2 fast spin echo through the lumbar spine. In cases with scoliosis, additional coronal T2 fast spin echo may be performed. COMPARISON: Merged With [facility], CR, XR LUMBAR SPINE MIN 4V, 07/17/2023, 10:38. FINDINGS: Image quality: Excellent. Alignment and Curvature: There is 3 mm grade 1 retrolisthesis at L4-5 and at L5-S1. Bone Marrow: Mild osseous edema is seen adjacent to the L2-3 facets bilaterally. No acute vertebral body compression fractures. Multilevel Modic type 2 degenerative endplate changes. Schmorl's node is seen at the superior endplate of L4. Spinal Cord: Conus medullaris terminates at the L1-2 level. Visualized cord demonstrates normal signal and size. Paraspinous Soft Tissues: No paravertebral masses. Mild grade 2 fatty infiltration of the paraspinous musculature. T12-L1: No spinal canal stenosis or neural foraminal narrowing. L1-L2: No spinal canal stenosis or neural foraminal narrowing. L2-L3: Disc height is maintained. There is [id number]-cz-[id number] bilateral facet hypertrophy. A right facet synovial cyst is seen measuring approximately the 14 x 10 x 6 mm that mildly impinges upon the dorsal aspect of the thecal sac. There is mild epidural lipomatosis. Findings result in mild narrowing of the spinal canal and mild crowding of the right lateral recess without significant neural foraminal narrowing. L3-L4: Mild circumferential disc bulging and mild bilateral facet hypertrophy with epidural lipomatosis, which result in mild narrowing of the spinal canal and mild narrowing of the bilateral neural foramina. L4-L5: Disc desiccation and loss of disc space height with circumferential disc bulging, mild bilateral facet hypertrophy, and epidural lipomatosis. Findings result in mild to moderate narrowing of the spinal canal with effacement of the bilateral lateral recesses and kyfi-tn-njrwprpu bilateral neural foraminal narrowing. L5-S1: Severe loss of disc space height with circumferential disc bulging and mild bilateral facet hypertrophy, which result in moderate bilateral neural foraminal narrowing without significant spinal canal stenosis. IMPRESSION: 1. Multilevel degenerative disc disease and facet hypertrophy as well as epidural lipomatosis as described in detail in the body of the report. 2. Mild osseous edema adjacent to the bilateral L2-3 facets extending into the L3 pedicles is likely related to facet arthropathy although acute trabecular bone injury is not excluded. 3. Synovial cyst is seen at the right L2-3 facet that mildly impinges upon the dorsal thecal sac and results in only mild narrowing of the spinal canal. Approved by: Александр Gray M.D. on 09/21/2023 at 12:08
== END ==
PROVIDERS: Family Provider Internal Medicine; PCP Internal Medicine; Referring Provider Physical Medicine & Rehabilitation; Visit Provider Physical Medicine & Rehabilitation
DX: M48.061 Spinal stenosis, lumbar region without neurogenic claudication (principal); M48.07 Spinal stenosis, lumbosacral region; M47.816 Spondylosis without myelopathy or radiculopathy, lumbar region; M47.817 Spondylosis without myelopathy or radiculopathy, lumbosacral region; M51.36 Other intervertebral disc degeneration, lumbar region; M51.37 Other intervertebral disc degeneration, lumbosacral region; M71.38 Other bursal cyst, other site
CPT/HCPCS: 72148

== ENCOUNTER → 2023-11-02 09:42 | Outpatient (CLI) | payer MEDICARE, SELFPAY ==
[2023-11-02 11:23] LABS: Add Manual Diff / Slide Review NO; Basophils Absolute Auto 0 /uL (0-100); Basophils Percent Auto 0.3 % (0-2); Eosinophils Absolute Auto 100 /uL (0-450); Eosinophils Percent Auto 1.2 % (2-4); Hematocrit 47.1 % (41-53); Hemoglobin 16.8 g/dL (13.5-17.5); Lymphocytes Absolute Auto 2300 /uL (1100-4500); Lymphocytes Percent Auto 29.1 % (25-40); Mean Corpuscular HGB Conc 35.7 % (30-36); Mean Corpuscular Hemoglobin 31.4 PG (26-34); Monocytes Absolute Auto 500 /uL (0-900); Monocytes Percent Auto 6.7 % (3-14); Neutrophils Absolute Auto 4900 /uL (1500-7000); Neutrophils Percent Auto 62.7 % (50-75); Platelet Count 176 X10^3/uL (150-400); Red Blood Cell Count 5.35 X10^6/uL (4.5-5.9); Red Cell Distribution Width 13.2 % (11.6-14.8); White Blood Cell Count 7.8 X10^3/uL (4.5-11.0)
[2023-11-02 11:31] LABS: BUN Creatinine Ratio 26.4 (6-22); Blood Urea Nitrogen 23 mg/dL (9-20); Calcium 10.2 mg/dL (8.4-10.2); Carbon Dioxide 27 mmol/L (22-32); Chloride 106 mmol/L (98-107); Cholesterol 172 mg/dL (140-199); Estimated Glomerular Filt Rate > 60 mL/min (>60); Glucose 120 mg/dL (80-110); HDL Cholesterol 44 mg/dL (40-60); HEMOLYSIS < 15 (0-50); LDL Cholesterol Calculated 106 mg/dL (<100); Potassium 4.3 mmol/L (3.4-5.1); Sodium 139 mmol/L (137-145); Triglycerides 109 mg/dL (35-150)
== END ==
PROVIDERS: Family Provider Internal Medicine; PCP Internal Medicine; Referring Provider Internal Medicine Cardiovascular Disease; Visit Provider Internal Medicine Cardiovascular Disease
DX: I10 Essential (primary) hypertension (principal)
CPT/HCPCS: 36415; 80048; 80061; 85025

== ENCOUNTER 2024-01-16 11:15 | Outpatient (RCR) | payer MEDICARE, SELFPAY ==
--- NOTE | 2023-11-05 17:08 | PT.OIE ---
Current Diagnoses Spondylosis without myelopathy or radiculopathy, lumbar region (11/05/23) Spinal stenosis, lumbar region without neurogenic claudication (11/05/23) Abnormal posture (11/05/23) Weakness (11/05/23) Past Medical History (Last Reviewed 08/22/23 @ 09:01 by Jaun Ghosh DO) Benign prostatic hyperplasia with urinary obstruction (10/12/16) Body mass index (BMI) of 30.0 to 30.9 in adult (10/12/16) COVID-19 (~04/2021) Elevated PSA Essential hypertension Facet arthropathy, lumbar H/O adenomatous polyp of colon Heart murmur (07/22/15) Hyperglycemia Sleep apnea Spinal stenosis, lumbar region without neurogenic claudication Visit Care Team Role Provider Type Silvio Reed MD Family Provider Physician Primary Care Provider Specialty: Internal Medicine Address: [address] [place] [address], [address], [address] Email: [email or web address] Jaun Ghosh DO Attending Provider Physician Referring Provider Specialty: Interventional Radiology Physiatry Pain Management Address: [address] [place] [address], [id number] Email: [email or web address] Physical Therapy Initial Evaluation PT-OP-A Visit Information Start: 11/05/23 08:13 Freq: Status: Active Protocol: Document 11/05/23 08:14 [facility] (Rec: 11/05/23 09:02 [facility] [id number]) Out-Patient Physical Therapy Visit Information Visit Information Visit Type Initial Evaluation Visit Start Time 08:14 Visit Stop Time 09:01 Visit Number 1 Evaluation Information Evaluation Date 11/05/23 PT-OP-B Current Condition Start: 11/05/23 08:13 Freq: Status: Active Protocol: Document 11/05/23 08:14 [facility] (Rec: 11/05/23 09:02 [facility] [id number]) Current Condition History of Current Condition Onset Date 40 years History of Current Condition carrying wood to a third floor level, piling on extra wood, eventually severe pain, couldn 't straighten up. Never went to the doctor. Yaneth een going to chirorpractor, helpful for awhile. Occasional pain left groin to knee, tightness and cramping. Then referred to Dr Ericka Calderon. x-ray as below. Given Celecoxib and it decreases pain to minimal. Walks several times per week 1 hr, has treadmill, has weights. Prior Treatments and Tests IMPRESSION: 1. Multilevel degenerative disc disease and facet hypertrophy as well as epidural lipomatosis as described in detail in the body of the report. 2. Mild osseous edema adjacent to the bilateral L2-3 facets extending into the L3 pedicles is likely related to facet arthropathy although acute trabecular bone injury is not excluded. 3. Synovial cyst is seen at the right L2-3 facet that mildly impinges upon the dorsal thecal sac and results in only mild narrowing of the spinal canal. Treatment Goals Patient/Caregiver Goals Strengthening, flexibility PT-OP-C Subjective Start: 11/05/23 08:13 Freq: Status: Active Protocol: Document 11/05/23 08:14 [facility] (Rec: 11/05/23 09:02 [facility] [id number]) Patient Questionnaires Oswestry Low Back Index Oswestry Score 14 PT-OP-F Manual Assessment Start: 11/05/23 08:13 Freq: Status: Active Protocol: Document 11/05/23 08:14 [facility] (Rec: 11/05/23 17:05 [facility] [id number]) Manual Assessments Soft Tissue Assessment Soft Tissue Mobility Assessment increased tightness bilateral lumbar paraspinals PT-OP-G Mobility & Gait Start: 11/05/23 08:13 Freq: Status: Active Protocol: Document 11/05/23 08:14 [facility] (Rec: 11/05/23 17:05 [facility] [id number]) OP Gait Assessment Gait Gait Assistance Required: Independent Able to Maintain Weight Bearing Status No During Gait Assistive Devices Assistive Device None Gait Deviations General Gait Pattern Flexed Trunk Factors Limiting Gait Function Factors Limiting Gait Function Decreased Strength,Pain PT-OP-H Neuro Start: 11/05/23 08:13 Freq: Status: Active Protocol: Document 11/05/23 08:14 [facility] (Rec: 11/05/23 17:05 [facility] [id number]) Sensation Evaluation Gross Sensation Gross Sensation WNL Vital Signs Comments Vital Signs Comments not tested this date PT-OP-J Posture/Palpation/Skin Start: 11/05/23 08:13 Freq: Status: Active Protocol: Document 11/05/23 08:14 [facility] (Rec: 11/05/23 09:02 [facility] [id number]) Posture Evaluation Position Standing Head/C-Spine Posture Forward Head T-Spine Posture Increased Kyphosis L-Spine Posture Increased Lordosis Pelvis Posture Anteriorly Tilted PT-OP-K Range of Motion Start: 11/05/23 08:13 Freq: Status: Active Protocol: Document 11/05/23 08:14 [facility] (Rec: 11/05/23 17:07 [facility] [id number]) Lumbar Spine Range of Motion Lumbar Spine Active Flexion 40 Extension 45 Lateral Flexion Left 45 Lateral Flexion Right 45 Comments stands in excess lumbar lordosis PT-OP-L Special Tests Start: 11/05/23 08:13 Freq: Status: Active Protocol: Document 11/05/23 08:14 [facility] (Rec: 11/05/23 17:07 [facility] [id number]) Special Tests Lumbar Spine Special Tests Straight Leg Raise Test Results - Compression Test Results - Stork Test Test Results - PT-OP-M Strength Start: 11/05/23 08:13 Freq: Status: Active Protocol: Document 11/05/23 08:14 [facility] (Rec: 11/05/23 09:02 [facility] [id number]) Trunk Strength Trunk Manual Muscle Testing Flexion 3- Fair- Extension 3+ Fair+ Core Stabilization poor PT-OP-Q Treatments Start: 11/05/23 08:13 Freq: Status: Active Protocol: Document 11/05/23 08:14 [facility] (Rec: 11/05/23 17:05 [facility] [id number]) Self-Care/Home Management Treatment Education Patient Education Home Exercise Program,Posture PT-OP-T Assessment and Plan Start: 11/05/23 08:13 Freq: Status: Active Protocol: Document 11/05/23 08:14 [facility] (Rec: 11/05/23 09:02 [facility] [id number]) Physical Therapy Assessment Rehab Potential Rehabilitation Potential Good Evaluation Complexity Number of Personal Factors/Comorbidities 1-2 Number of Body Systems Impaired 3 Clinical Presentation at Evaluation Evolving Impairments Impairments Activity Tolerance,Pain, Strength Goals core and hip muscle weakness Short Term Goal (STG) patient to be instructed in individualized progressive HEP for purposes of strengthening and core stabilization as well as correct body mechanics for lifting STG Duration 12/14/23 Wood Treating Inspector Goal (LTG) Patient to be independent and compliant with HEP and demonstrate improvement in muscle strength to at least 4+ /5 all muscle groups and demonstrate correct lifting form for back protection without c/o pain LTG Duration 02/05/24 Oswestry Disability index score Impairment 18% Fpc Goal (LTG) Decrease score to no greater than 8% as measure of decreased pain and improved function LTG Duration 02/05/24 postural impairment Short Term Goal (STG) Instruct patient in neutral posture, rationale, and postural correction exercises for back protection and health STG Duration 12/15/23 Wood Treating Inspector Goal (LTG) Patient to be able to demonstrate independent ability to perform postural correction exercises and demonstrate improved postural alignment statically, and dynamically with function LTG Duration 02/05/24 Assessment Summary Assessment Patient presents to PT with function-limiting pain in bilateral lumbar spine and c/o tightness and spasm left inner thigh. REfers to prior lifting injury as initial cause of longstanding and worsening LBP. Lumbar spine MRI results per chart shows 1. Multilevel degenerative disc disease and facet hypertrophy as well as epidural lipomatosis as described in detail in the body of the report. 2. Mild osseous edema adjacent to the bilateral L2-3 facets extending into the L3 pedicles is likely related to facet arthropathy although acute trabecular bone injury is not excluded. 3. Synovial cyst is seen at the right L2-3 facet that mildly impinges upon the dorsal thecal sac and results in only mild narrowing of the spinal canal. Patient posture characterized by excess lumbar lordosis, muscle tests reveal core and abdominal weakness as well as hip extensor weakness. No neurological symptoms. FEel patient would benefit from PT to improve his posture , strength, and core stabilization ability to decrease his pain and improve his function. Physical Therapy Plan Frequency and Duration Frequency of Treatment 2x/Week Duration of treatment (weeks) 12 Plan of Care Start Date 11/05/23 Plan of Care End Date 02/05/24 Therapeutic Interventions Therapeutic Interventions Home Exercise Program,Manual Therapy,Patient/Caregiver Education,Self-Care/Home Management,Soft Tissue Mobilization,Taping, Therapeutic Activities, Therapeutic Exercises Modalities Cold Pack/Ice Massage,Electric Stimulation,Hot Packs, Infrared Therapy,Ultrasound Next Visit Focus/Plan Next Note Type Treatment Note Next Visit Plan REview HEP, postural correction activities, progress core strengthening and stabilization.
--- NOTE | 2023-11-05 17:08 | PT.OPPOC ---
Physical, Occupational & Speech Therapy At [facility] Current Diagnoses Spondylosis without myelopathy or radiculopathy, lumbar region (11/05/23) Spinal stenosis, lumbar region without neurogenic claudication (11/05/23) Abnormal posture (11/05/23) Weakness (11/05/23) Visit Care Team Role Provider Type Silvio Reed MD Family Provider Physician Primary Care Provider Specialty: Internal Medicine Address: [address] [place] [address], [address], [address] Email: [email or web address] Jaun Ghosh DO Attending Provider Physician Referring Provider Specialty: Interventional Radiology Physiatry Pain Management Address: [facility] [place], [address] Email: [email or web address] Plan Of Care PT-OP-T Assessment and Plan Start: 11/05/23 08:13 Freq: Status: Active Protocol: Document 11/05/23 08:14 [facility] (Rec: 11/05/23 09:02 [facility] [id number]) Physical Therapy Assessment Rehab Potential Rehabilitation Potential Good Evaluation Complexity Number of Personal Factors/Comorbidities 1-2 Number of Body Systems Impaired 3 Clinical Presentation at Evaluation Evolving Impairments Impairments Activity Tolerance,Pain, Strength Goals core and hip muscle weakness Short Term Goal (STG) patient to be instructed in individualized progressive HEP for purposes of strengthening and core stabilization as well as correct body mechanics for lifting STG Duration 12/14/23 Fdc Goal (LTG) Patient to be independent and compliant with HEP and demonstrate improvement in muscle strength to at least 4+ /5 all muscle groups and demonstrate correct lifting form for back protection without c/o pain LTG Duration 02/05/24 Oswestry Disability index score Impairment 18% Fdc Goal (LTG) Decrease score to no greater than 8% as measure of decreased pain and improved function LTG Duration 02/05/24 postural impairment Short Term Goal (STG) Instruct patient in neutral posture, rationale, and postural correction exercises for back protection and health STG Duration 12/15/23 Performance Test Engineer Goal (LTG) Patient to be able to demonstrate independent ability to perform postural correction exercises and demonstrate improved postural alignment statically, and dynamically with function LTG Duration 02/05/24 Assessment Summary Assessment Patient presents to PT with function-limiting pain in bilateral lumbar spine and c/o tightness and spasm left inner thigh. REfers to prior lifting injury as initial cause of longstanding and worsening LBP. Lumbar spine MRI results per chart shows 1. Multilevel degenerative disc disease and facet hypertrophy as well as epidural lipomatosis as described in detail in the body of the report. 2. Mild osseous edema adjacent to the bilateral L2-3 facets extending into the L3 pedicles is likely related to facet arthropathy although acute trabecular bone injury is not excluded. 3. Synovial cyst is seen at the right L2-3 facet that mildly impinges upon the dorsal thecal sac and results in only mild narrowing of the spinal canal. Patient posture characterized by excess lumbar lordosis, muscle tests reveal core and abdominal weakness as well as hip extensor weakness. No neurological symptoms. FEel patient would benefit from PT to improve his posture , strength, and core stabilization ability to decrease his pain and improve his function. Physical Therapy Plan Frequency and Duration Frequency of Treatment 2x/Week Duration of treatment (weeks) 12 Plan of Care Start Date 11/05/23 Plan of Care End Date 02/05/24 Therapeutic Interventions Therapeutic Interventions Home Exercise Program,Manual Therapy,Patient/Caregiver Education,Self-Care/Home Management,Soft Tissue Mobilization,Taping, Therapeutic Activities, Therapeutic Exercises Modalities Cold Pack/Ice Massage,Electric Stimulation,Hot Packs, Infrared Therapy,Ultrasound Next Visit Focus/Plan Next Note Type Treatment Note Next Visit Plan REview HEP, postural correction activities, progress core strengthening and stabilization. Plan of Care Dates Plan of Care Start Date 11/05/23 Plan of Care End Date 02/05/24 Electronically Signed by: Ailyn Aguirre, PT 11/05/23 1034 If you are in agreement with this Plan of Care, please return a signed and dated copy. I have reviewed this Plan of Care and certify that the skilled therapy services above are required to meet the patient?s needs. Physician Signature Date Printed Name and Credentials Clinical Instructor Signature Printed Name and Credentials
--- NOTE | 2023-11-07 09:03 | PT.OTN ---
Current Diagnoses Spondylosis without myelopathy or radiculopathy, lumbar region (11/07/23) Spinal stenosis, lumbar region without neurogenic claudication (11/07/23) Abnormal posture (11/07/23) Weakness (11/07/23) Physical Therapy Treatment Note PT-OP-A Visit Information Start: 11/05/23 08:13 Freq: Status: Active Protocol: Document 11/07/23 08:09 SAK (Rec: 11/07/23 09:03 [facility] [id number]) Out-Patient Physical Therapy Visit Information Visit Information Visit Type Treatment Note Visit Start Time 08:10 Visit Number 2 Evaluation Information Evaluation Date 11/05/23 PT-OP-B Current Condition Start: 11/05/23 08:13 Freq: Status: Active Protocol: Document 11/07/23 08:09 SAK (Rec: 11/07/23 09:03 [facility] [id number]) Current Condition History of Current Condition Onset Date 40 years History of Current Condition carrying wood to a third floor level, piling on extra wood, eventually severe pain, couldn 't straighten up. Never went to the doctor. Yaneth een going to chirorpractor, helpful for awhile. Occasional pain left groin to knee, tightness and cramping. Then referred to Dr Ericka Calderon. x-ray as below. Given Celecoxib and it decreases pain to minimal. Walks several times per week 1 hr, has treadmill, has weights. Prior Treatments and Tests IMPRESSION: 1. Multilevel degenerative disc disease and facet hypertrophy as well as epidural lipomatosis as described in detail in the body of the report. 2. Mild osseous edema adjacent to the bilateral L2-3 facets extending into the L3 pedicles is likely related to facet arthropathy although acute trabecular bone injury is not excluded. 3. Synovial cyst is seen at the right L2-3 facet that mildly impinges upon the dorsal thecal sac and results in only mild narrowing of the spinal canal. Treatment Goals Patient/Caregiver Goals Strengthening, flexibility PT-OP-C Subjective Start: 11/05/23 08:13 Freq: Status: Active Protocol: Document 11/07/23 08:09 SAK (Rec: 11/07/23 09:03 SAK [id number]) OP-PT Subjective Patient Comments Patient Comments Feels like he is getting the pelvic tilt, when I do it in standing I feel like I am standing up straighter than I did before but have difficulty maintaining with walking. PT-OP-F Manual Assessment Start: 11/05/23 08:13 Freq: Status: Active Protocol: Document 11/05/23 08:14 SAK (Rec: 11/05/23 17:05 [facility] [id number]) Manual Assessments Soft Tissue Assessment Soft Tissue Mobility Assessment increased tightness bilateral lumbar paraspinals PT-OP-G Mobility & Gait Start: 11/05/23 08:13 Freq: Status: Active Protocol: Document 11/05/23 08:14 SAK (Rec: 11/05/23 17:05 [facility] [id number]) OP Gait Assessment Gait Gait Assistance Required: Independent Able to Maintain Weight Bearing Status No During Gait Assistive Devices Assistive Device None Gait Deviations General Gait Pattern Flexed Trunk Factors Limiting Gait Function Factors Limiting Gait Function Decreased Strength,Pain PT-OP-H Neuro Start: 11/05/23 08:13 Freq: Status: Active Protocol: Document 11/05/23 08:14 SAK (Rec: 11/05/23 17:05 [facility] [id number]) Sensation Evaluation Gross Sensation Gross Sensation WNL Vital Signs Comments Vital Signs Comments not tested this date PT-OP-J Posture/Palpation/Skin Start: 11/05/23 08:13 Freq: Status: Active Protocol: Document 11/05/23 08:14 SAK (Rec: 11/05/23 09:02 [facility] [id number]) Posture Evaluation Position Standing Head/C-Spine Posture Forward Head T-Spine Posture Increased Kyphosis L-Spine Posture Increased Lordosis Pelvis Posture Anteriorly Tilted PT-OP-K Range of Motion Start: 11/05/23 08:13 Freq: Status: Active Protocol: Document 11/05/23 08:14 SAK (Rec: 11/05/23 17:07 [facility] [id number]) Lumbar Spine Range of Motion Lumbar Spine Active Flexion 40 Extension 45 Lateral Flexion Left 45 Lateral Flexion Right 45 Comments stands in excess lumbar lordosis PT-OP-L Special Tests Start: 11/05/23 08:13 Freq: Status: Active Protocol: Document 11/05/23 08:14 SAK (Rec: 11/05/23 17:07 [facility] [id number]) Special Tests Lumbar Spine Special Tests Straight Leg Raise Test Results - Compression Test Results - Stork Test Test Results - PT-OP-M Strength Start: 11/05/23 08:13 Freq: Status: Active Protocol: Document 11/05/23 08:14 [facility] (Rec: 11/05/23 09:02 SAK [id number]) Trunk Strength Trunk Manual Muscle Testing Flexion 3- Fair- Extension 3+ Fair+ Core Stabilization poor PT-OP-Q Treatments Start: 11/05/23 08:13 Freq: Status: Active Protocol: Document 11/07/23 08:09 [facility] (Rec: 11/07/23 09:03 SAK [id number]) Therapeutic Exercises Supine Exercises bug Supine Exercise Name feet on table Reps/Minutes 10x Comments cues for neutral spine ball squeeze Supine Exercise Name with TA activation Reps/Minutes 10x bridge Supine Exercise Name segmental Reps/Minutes 10x pelvic tilt Reps/Minutes 10x Sitting Exercises sit to stand Equipment Used yardstick Reps/Minutes 10x Comments cues for hip hinge Standing Exercises sit to stand Equipment Used yardstick Reps/Minutes 10x Comments hands stacked on abdomen for hip hinge feedback, cues for gluteal engagemen wall posture Standing Exercise Name with segmental roll up and roll down, arms overhead Reps/Minutes 5 min Other Exercises cat/cow Other Exercise Name next session bird dog Other Exercise Name next session Therapeutic Activity Therapeutic Activity sit to stand Reps/Minutes 10x Comments with yardstick. Self-Care/Home Management Treatment Education Patient Education Body Mechanics,Home Exercise Program,Joint Protection, Posture Other Education UPDATED WRITTEN HEP PT-OP-T Assessment and Plan Start: 11/05/23 08:13 Freq: Status: Active Protocol: Document 11/07/23 08:09 [facility] (Rec: 11/07/23 09:03 [facility] [id number]) Physical Therapy Assessment Goals core and hip muscle weakness Short Term Goal (STG) patient to be instructed in individualized progressive HEP for purposes of strengthening and core stabilization as well as correct body mechanics for lifting STG Duration 12/14/23 Health Information Manager Goal (LTG) Patient to be independent and compliant with HEP and demonstrate improvement in muscle strength to at least 4+ /5 all muscle groups and demonstrate correct lifting form for back protection without c/o pain LTG Duration 02/05/24 Oswestry Disability index score Impairment 18% Health Information Manager Goal (LTG) Decrease score to no greater than 8% as measure of decreased pain and improved function LTG Duration 02/05/24 postural impairment Short Term Goal (STG) Instruct patient in neutral posture, rationale, and postural correction exercises for back protection and health STG Duration 12/15/23 Health Information Manager Goal (LTG) Patient to be able to demonstrate independent ability to perform postural correction exercises and demonstrate improved postural alignment statically, and dynamically with function LTG Duration 02/05/24 Assessment Summary Assessment Progression of core and postural correction exercises. Issued updated HO. Patient demonstrated good understanding, very focused with exercises. Denied pain, Physical Therapy Plan Frequency and Duration Frequency of Treatment 2x/Week Duration of treatment (weeks) 12 Plan of Care Start Date 11/05/23 Plan of Care End Date 02/05/24 Therapeutic Interventions Therapeutic Interventions Home Exercise Program,Manual Therapy,Patient/Caregiver Education,Self-Care/Home Management,Soft Tissue Mobilization,Taping, Therapeutic Activities, Therapeutic Exercises Modalities Cold Pack/Ice Massage,Electric Stimulation,Hot Packs, Infrared Therapy,Ultrasound Next Visit Focus/Plan Next Note Type Treatment Note Next Visit Plan Continue progression of core and postural correction exercises, closed chain functional as tolerated
--- NOTE | 2023-11-13 09:02 | PT.OTN ---
Current Diagnoses Spondylosis without myelopathy or radiculopathy, lumbar region (11/13/23) Spinal stenosis, lumbar region without neurogenic claudication (11/13/23) Abnormal posture (11/13/23) Weakness (11/13/23) Physical Therapy Treatment Note PT-OP-A Visit Information Start: 11/05/23 08:13 Freq: Status: Active Protocol: Document 11/13/23 08:24 SP (Rec: 11/13/23 09:05 SP [id number]) Out-Patient Physical Therapy Visit Information Visit Information Visit Type Treatment Note Visit Start Time 08:24 Visit Stop Time 09:02 Visit Number 3 Number of AIR BRUSH ARTIST Visits 1 Evaluation Information Evaluation Date 11/05/23 PT-OP-B Current Condition Start: 11/05/23 08:13 Freq: Status: Active Protocol: Document 11/07/23 08:09 SAK (Rec: 11/07/23 09:03 SAK [id number]) Current Condition History of Current Condition Onset Date 40 years History of Current Condition carrying wood to a third floor level, piling on extra wood, eventually severe pain, couldn 't straighten up. Never went to the doctor. Yaneth een going to chirorpractor, helpful for awhile. Occasional pain left groin to knee, tightness and cramping. Then referred to Dr Ericka Calderon. x-ray as below. Given Celecoxib and it decreases pain to minimal. Walks several times per week 1 hr, has treadmill, has weights. Prior Treatments and Tests IMPRESSION: 1. Multilevel degenerative disc disease and facet hypertrophy as well as epidural lipomatosis as described in detail in the body of the report. 2. Mild osseous edema adjacent to the bilateral L2-3 facets extending into the L3 pedicles is likely related to facet arthropathy although acute trabecular bone injury is not excluded. 3. Synovial cyst is seen at the right L2-3 facet that mildly impinges upon the dorsal thecal sac and results in only mild narrowing of the spinal canal. Treatment Goals Patient/Caregiver Goals Strengthening, flexibility PT-OP-C Subjective Start: 11/05/23 08:13 Freq: Status: Active Protocol: Document 11/13/23 08:24 SP (Rec: 11/13/23 09:05 SP [id number]) OP-PT Subjective Patient Comments Patient Comments Pt reports back felt better after last tx but when did ex home, didn't feel as good after, want to check form, is performing on yoga mat on floor home. PT-OP-F Manual Assessment Start: 11/05/23 08:13 Freq: Status: Active Protocol: Document 11/05/23 08:14 SAK (Rec: 11/05/23 17:05 [facility] [id number]) Manual Assessments Soft Tissue Assessment Soft Tissue Mobility Assessment increased tightness bilateral lumbar paraspinals PT-OP-G Mobility & Gait Start: 11/05/23 08:13 Freq: Status: Active Protocol: Document 11/05/23 08:14 SAK (Rec: 11/05/23 17:05 [facility] [id number]) OP Gait Assessment Gait Gait Assistance Required: Independent Able to Maintain Weight Bearing Status No During Gait Assistive Devices Assistive Device None Gait Deviations General Gait Pattern Flexed Trunk Factors Limiting Gait Function Factors Limiting Gait Function Decreased Strength,Pain PT-OP-H Neuro Start: 11/05/23 08:13 Freq: Status: Active Protocol: Document 11/05/23 08:14 SAK (Rec: 11/05/23 17:05 [facility] [id number]) Sensation Evaluation Gross Sensation Gross Sensation WNL Vital Signs Comments Vital Signs Comments not tested this date PT-OP-J Posture/Palpation/Skin Start: 11/05/23 08:13 Freq: Status: Active Protocol: Document 11/05/23 08:14 SAK (Rec: 11/05/23 09:02 [facility] [id number]) Posture Evaluation Position Standing Head/C-Spine Posture Forward Head T-Spine Posture Increased Kyphosis L-Spine Posture Increased Lordosis Pelvis Posture Anteriorly Tilted PT-OP-K Range of Motion Start: 11/05/23 08:13 Freq: Status: Active Protocol: Document 11/05/23 08:14 SAK (Rec: 11/05/23 17:07 [facility] [id number]) Lumbar Spine Range of Motion Lumbar Spine Active Flexion 40 Extension 45 Lateral Flexion Left 45 Lateral Flexion Right 45 Comments stands in excess lumbar lordosis PT-OP-L Special Tests Start: 11/05/23 08:13 Freq: Status: Active Protocol: Document 11/05/23 08:14 SAK (Rec: 11/05/23 17:07 [facility] [id number]) Special Tests Lumbar Spine Special Tests Straight Leg Raise Test Results - Compression Test Results - Stork Test Test Results - PT-OP-M Strength Start: 11/05/23 08:13 Freq: Status: Active Protocol: Document 11/05/23 08:14 SAK (Rec: 11/05/23 09:02 SAK [id number]) Trunk Strength Trunk Manual Muscle Testing Flexion 3- Fair- Extension 3+ Fair+ Core Stabilization poor PT-OP-Q Treatments Start: 11/05/23 08:13 Freq: Status: Active Protocol: Document 11/13/23 08:24 SP (Rec: 11/13/23 09:05 SP [id number]) Gym Equipment Sport Cord red Exercise Details next tx Therapeutic Exercises Supine Exercises bug Supine Exercise Name feet on table Equipment Used small folded washclothe mid- upper LS feedback PPT Reps/Minutes 10x Comments cues for neutral spine, LE>UE range maintain ball squeeze Supine Exercise Name with TA activation Equipment Used vushaper kickball (large papertowel roll home) Reps/Minutes 10x Comments cued PPT/ neutral pelvis bridge Supine Exercise Name segmental Reps/Minutes 10x, 5 SH Comments good PPT segmental roll lift/ lower slowpacing pelvic tilt Reps/Minutes 10x, 5 SH Comments good form Standing Exercises sit to stand Equipment Used yardstick Reps/Minutes 10x Comments hands stacked on abdomen for hip hinge feedback, cues for gluteal engagemen wall posture Standing Exercise Name with segmental roll up and roll down, arms at side 11/12 Reps/Minutes 5 min Comments Max cues ft back more toward wall flat (no heel raise), PPT , head retract Other Exercises child's pose Other Exercise Name trialed in PT Reps/Minutes 30SH x2 between modifed bird dog Comments cued knees WBOS, arms front- good back stretch reported cat/cow Other Exercise Name next session bird dog Other Exercise Name Modified LEs only- in PT Side bilateral Reps/Minutes 2x5 each LE Comments VC knees/hand under pelvis/ shld, tactile cues fdbk PP/c level pelvis, TA PT-OP-T Assessment and Plan Start: 11/05/23 08:13 Freq: Status: Active Protocol: Document 11/13/23 08:24 SP (Rec: 11/13/23 09:05 SP [id number]) Physical Therapy Assessment Goals core and hip muscle weakness Short Term Goal (STG) patient to be instructed in individualized progressive HEP for purposes of strengthening and core stabilization as well as correct body mechanics for lifting STG Duration 12/14/23 Musical Engineer Goal (LTG) Patient to be independent and compliant with HEP and demonstrate improvement in muscle strength to at least 4+ /5 all muscle groups and demonstrate correct lifting form for back protection without c/o pain LTG Duration 02/05/24 Oswestry Disability index score Impairment 18% Musical Engineer Goal (LTG) Decrease score to no greater than 8% as measure of decreased pain and improved function LTG Duration 02/05/24 postural impairment Short Term Goal (STG) Instruct patient in neutral posture, rationale, and postural correction exercises for back protection and health STG Duration 12/15/23 Musical Engineer Goal (LTG) Patient to be able to demonstrate independent ability to perform postural correction exercises and demonstrate improved postural alignment statically, and dynamically with function LTG Duration 02/05/24 Assessment Summary Assessment Pt improved audible identification PPT back toward floor during supine ther ex with tactile feedback therapist hand then use folded washcloth for home carryover support. Min cues level pelvis during modified LE ext only, improved self corrections. Challenged maintain LS toward wall during wall posture and not allow heel lift, better heels close to wall but not touching. Improved back alignment use yard stick and TA sit stands, cued not over CS retraction just tuck is sufficient for him. Pt reports back feels good and can feel TA by end of tx. Pt would benefit from continued alignment with TA fac during functional STS and wall posturing, incorporate UEs [place] as did with PT last. Physical Therapy Plan Frequency and Duration Frequency of Treatment 2x/Week Duration of treatment (weeks) 12 Plan of Care Start Date 11/05/23 Plan of Care End Date 02/05/24 Therapeutic Interventions Therapeutic Interventions Home Exercise Program,Manual Therapy,Patient/Caregiver Education,Self-Care/Home Management,Soft Tissue Mobilization,Taping, Therapeutic Activities, Therapeutic Exercises Modalities Cold Pack/Ice Massage,Electric Stimulation,Hot Packs, Infrared Therapy,Ultrasound Next Visit Focus/Plan Next Note Type Treatment Note Next Visit Plan Next tx: review bug, bird dog if can incorporated UEs, wall posture UEs [place]. PT POC: Continue progression of core and postural correction exercises, closed chain functional as tolerated Eg. bird dog, sport cord, paloff press if tolerated
--- NOTE | 2023-11-16 09:05 | PT.OTN ---
Current Diagnoses Spondylosis without myelopathy or radiculopathy, lumbar region (11/16/23) Spinal stenosis, lumbar region without neurogenic claudication (11/16/23) Abnormal posture (11/16/23) Weakness (11/16/23) Physical Therapy Treatment Note PT-OP-A Visit Information Start: 11/05/23 08:13 Freq: Status: Active Protocol: Document 11/16/23 08:19 SP (Rec: 11/16/23 09:06 SP [id number]) Out-Patient Physical Therapy Visit Information Visit Information Visit Type Treatment Note Visit Start Time 08:19 Visit Stop Time 09:05 Visit Number 4 Number of MEDICAL TRANSCRIPTION Visits 2 Evaluation Information Evaluation Date 11/05/23 PT-OP-B Current Condition Start: 11/05/23 08:13 Freq: Status: Active Protocol: Document 11/07/23 08:09 SAK (Rec: 11/07/23 09:03 SAK [id number]) Current Condition History of Current Condition Onset Date 40 years History of Current Condition carrying wood to a third floor level, piling on extra wood, eventually severe pain, couldn 't straighten up. Never went to the doctor. Yaneth een going to chirorpractor, helpful for awhile. Occasional pain left groin to knee, tightness and cramping. Then referred to Dr Ericka Calderon. x-ray as below. Given Celecoxib and it decreases pain to minimal. Walks several times per week 1 hr, has treadmill, has weights. Prior Treatments and Tests IMPRESSION: 1. Multilevel degenerative disc disease and facet hypertrophy as well as epidural lipomatosis as described in detail in the body of the report. 2. Mild osseous edema adjacent to the bilateral L2-3 facets extending into the L3 pedicles is likely related to facet arthropathy although acute trabecular bone injury is not excluded. 3. Synovial cyst is seen at the right L2-3 facet that mildly impinges upon the dorsal thecal sac and results in only mild narrowing of the spinal canal. Treatment Goals Patient/Caregiver Goals Strengthening, flexibility PT-OP-C Subjective Start: 11/05/23 08:13 Freq: Status: Active Protocol: Document 11/16/23 08:19 SP (Rec: 11/16/23 09:06 SP [id number]) OP-PT Subjective Patient Comments Patient Comments Pt reports felt good after last tx. Doing well with exercises. Woke up sore though in LB. PT-OP-F Manual Assessment Start: 11/05/23 08:13 Freq: Status: Active Protocol: Document 11/05/23 08:14 SAK (Rec: 11/05/23 17:05 [facility] [id number]) Manual Assessments Soft Tissue Assessment Soft Tissue Mobility Assessment increased tightness bilateral lumbar paraspinals PT-OP-G Mobility & Gait Start: 11/05/23 08:13 Freq: Status: Active Protocol: Document 11/05/23 08:14 SAK (Rec: 11/05/23 17:05 [facility] [id number]) OP Gait Assessment Gait Gait Assistance Required: Independent Able to Maintain Weight Bearing Status No During Gait Assistive Devices Assistive Device None Gait Deviations General Gait Pattern Flexed Trunk Factors Limiting Gait Function Factors Limiting Gait Function Decreased Strength,Pain PT-OP-H Neuro Start: 11/05/23 08:13 Freq: Status: Active Protocol: Document 11/05/23 08:14 SAK (Rec: 11/05/23 17:05 [facility] [id number]) Sensation Evaluation Gross Sensation Gross Sensation WNL Vital Signs Comments Vital Signs Comments not tested this date PT-OP-J Posture/Palpation/Skin Start: 11/05/23 08:13 Freq: Status: Active Protocol: Document 11/05/23 08:14 SAK (Rec: 11/05/23 09:02 [facility] [id number]) Posture Evaluation Position Standing Head/C-Spine Posture Forward Head T-Spine Posture Increased Kyphosis L-Spine Posture Increased Lordosis Pelvis Posture Anteriorly Tilted PT-OP-K Range of Motion Start: 11/05/23 08:13 Freq: Status: Active Protocol: Document 11/05/23 08:14 SAK (Rec: 11/05/23 17:07 [facility] [id number]) Lumbar Spine Range of Motion Lumbar Spine Active Flexion 40 Extension 45 Lateral Flexion Left 45 Lateral Flexion Right 45 Comments stands in excess lumbar lordosis PT-OP-L Special Tests Start: 11/05/23 08:13 Freq: Status: Active Protocol: Document 11/05/23 08:14 SAK (Rec: 11/05/23 17:07 [facility] [id number]) Special Tests Lumbar Spine Special Tests Straight Leg Raise Test Results - Compression Test Results - Stork Test Test Results - PT-OP-M Strength Start: 11/05/23 08:13 Freq: Status: Active Protocol: Document 11/05/23 08:14 SAK (Rec: 11/05/23 09:02 SAK [id number]) Trunk Strength Trunk Manual Muscle Testing Flexion 3- Fair- Extension 3+ Fair+ Core Stabilization poor PT-OP-Q Treatments Start: 11/05/23 08:13 Freq: Status: Active Protocol: Document 11/16/23 08:19 SP (Rec: 11/16/23 09:06 SP [id number]) Therapeutic Exercises Supine Exercises bug Supine Exercise Name feet on yoga mat Equipment Used small folded washclothe mid- upper LS feedback PPT Reps/Minutes 10x Comments cues for neutral spine during LE>UE return, mid range pelvic tilt Reps/Minutes 5x, 5 SH Comments good form pre bug Standing Exercises paloff press Standing Exercise Name trialed in PT Side bilateral Resistance Tb #2 Reps/Minutes 5 reps each side Comments cued sit to stand Standing Exercise Name STS > squat mechanics Equipment Used yardstick Reps/Minutes 10x Comments hands stacked on abdomen for hip hinge feedback, cues for gluteal engagemen wall posture Standing Exercise Name with segmental roll up and roll down, arms at side 5/14 Reps/Minutes 5 min Comments Max cues ft back more toward wall flat (no heel raise), PPT , head retract Other Exercises child's pose Reps/Minutes 30SH x2 Comments cued knees WBOS, arms front- good back stretch reported cat/cow Other Exercise Name added toHEP Reps/Minutes x8 reps bird dog Side bilateral Reps/Minutes 2x5 each LE Comments VC knees/hand under pelvis/ shld, tactile cues fdbk PP/c level pelvis, TA PT-OP-T Assessment and Plan Start: 11/05/23 08:13 Freq: Status: Active Protocol: Document 11/16/23 08:19 SP (Rec: 11/16/23 09:06 SP [id number]) Physical Therapy Assessment Goals core and hip muscle weakness Short Term Goal (STG) patient to be instructed in individualized progressive HEP for purposes of strengthening and core stabilization as well as correct body mechanics for lifting STG Duration 12/14/23 Correction Goal (LTG) Patient to be independent and compliant with HEP and demonstrate improvement in muscle strength to at least 4+ /5 all muscle groups and demonstrate correct lifting form for back protection without c/o pain LTG Duration 02/05/24 Oswestry Disability index score Impairment 18% Correction Goal (LTG) Decrease score to no greater than 8% as measure of decreased pain and improved function LTG Duration 02/05/24 postural impairment Short Term Goal (STG) Instruct patient in neutral posture, rationale, and postural correction exercises for back protection and health STG Duration 12/15/23 Director Of Primary Care Goal (LTG) Patient to be able to demonstrate independent ability to perform postural correction exercises and demonstrate improved postural alignment statically, and dynamically with function LTG Duration 02/05/24 Assessment Summary Assessment Pt responded well to ther ex, continues to be challenged with maintaining PPT with wall posture but improved demo with STS that progressed into hip hinge picking up/putting down crate to support spinal support with NS LB for yard work. Pt improved self corrections with added bird dog and paloff press this tx. Provided HOs. Physical Therapy Plan Frequency and Duration Frequency of Treatment 2x/Week Duration of treatment (weeks) 12 Plan of Care Start Date 11/05/23 Plan of Care End Date 02/05/24 Therapeutic Interventions Therapeutic Interventions Home Exercise Program,Manual Therapy,Patient/Caregiver Education,Self-Care/Home Management,Soft Tissue Mobilization,Taping, Therapeutic Activities, Therapeutic Exercises Modalities Cold Pack/Ice Massage,Electric Stimulation,Hot Packs, Infrared Therapy,Ultrasound Next Visit Focus/Plan Next Note Type Treatment Note Next Visit Plan Next tx: review bug, bird dog, paloff press, wall posture UEs [place]. Add sport cord for dynamic progression. PT POC: Continue progression of core and postural correction exercises, closed chain functional as tolerated
--- NOTE | 2023-12-03 11:50 | PT.OTN ---
Current Diagnoses Spondylosis without myelopathy or radiculopathy, lumbar region (12/03/23) Spinal stenosis, lumbar region without neurogenic claudication (12/03/23) Abnormal posture (12/03/23) Weakness (12/03/23) Physical Therapy Treatment Note PT-OP-A Visit Information Start: 11/05/23 08:13 Freq: Status: Active Protocol: Document 12/03/23 08:10 AB (Rec: 12/03/23 11:50 AB [id number]) Out-Patient Physical Therapy Visit Information Visit Information Visit Type Treatment Note Visit Note Access Code [email or web address] Visit Start Time 09:03 Visit Stop Time 09:48 Visit Number 5 Number of BENDER HAND Visits 3 Evaluation Information Evaluation Date 11/05/23 PT-OP-B Current Condition Start: 11/05/23 08:13 Freq: Status: Active Protocol: Document 11/07/23 08:09 SAK (Rec: 11/07/23 09:03 SAK [id number]) Current Condition History of Current Condition Onset Date 40 years History of Current Condition carrying wood to a third floor level, piling on extra wood, eventually severe pain, couldn 't straighten up. Never went to the doctor. Yaneth een going to chirorpractor, helpful for awhile. Occasional pain left groin to knee, tightness and cramping. Then referred to Dr Ericka Calderon. x-ray as below. Given Celecoxib and it decreases pain to minimal. Walks several times per week 1 hr, has treadmill, has weights. Prior Treatments and Tests IMPRESSION: 1. Multilevel degenerative disc disease and facet hypertrophy as well as epidural lipomatosis as described in detail in the body of the report. 2. Mild osseous edema adjacent to the bilateral L2-3 facets extending into the L3 pedicles is likely related to facet arthropathy although acute trabecular bone injury is not excluded. 3. Synovial cyst is seen at the right L2-3 facet that mildly impinges upon the dorsal thecal sac and results in only mild narrowing of the spinal canal. Treatment Goals Patient/Caregiver Goals Strengthening, flexibility PT-OP-C Subjective Start: 11/05/23 08:13 Freq: Status: Active Protocol: Document 12/03/23 08:10 AB (Rec: 12/03/23 11:50 AB [id number]) OP-PT Subjective Patient Comments Patient Comments Patient reports he is a little better. Patient reports he didn't do the ball exercises, had too much stuff going on. Patient reports the back continues to hurt when he is on his feet for too long if he bends the wrong way or picks up something too heavy. Patient reports when he gets up from his back suddenly. Patient ambulates without device bilateral hips in ER, no trailing limb bilaterally, contralateral pelvic drop stance phase bilaterally. Right hamstring lacking 25 deg , left 10 deg measured 90/90 position AROM PT-OP-F Manual Assessment Start: 11/05/23 08:13 Freq: Status: Active Protocol: Document 11/05/23 08:14 SAK (Rec: 11/05/23 17:05 [facility] [id number]) Manual Assessments Soft Tissue Assessment Soft Tissue Mobility Assessment increased tightness bilateral lumbar paraspinals PT-OP-G Mobility & Gait Start: 11/05/23 08:13 Freq: Status: Active Protocol: Document 11/05/23 08:14 SAK (Rec: 11/05/23 17:05 [facility] [id number]) OP Gait Assessment Gait Gait Assistance Required: Independent Able to Maintain Weight Bearing Status No During Gait Assistive Devices Assistive Device None Gait Deviations General Gait Pattern Flexed Trunk Factors Limiting Gait Function Factors Limiting Gait Function Decreased Strength,Pain PT-OP-H Neuro Start: 11/05/23 08:13 Freq: Status: Active Protocol: Document 11/05/23 08:14 SAK (Rec: 11/05/23 17:05 [facility] [id number]) Sensation Evaluation Gross Sensation Gross Sensation WNL Vital Signs Comments Vital Signs Comments not tested this date PT-OP-J Posture/Palpation/Skin Start: 11/05/23 08:13 Freq: Status: Active Protocol: Document 11/05/23 08:14 SAK (Rec: 11/05/23 09:02 [facility] [id number]) Posture Evaluation Position Standing Head/C-Spine Posture Forward Head T-Spine Posture Increased Kyphosis L-Spine Posture Increased Lordosis Pelvis Posture Anteriorly Tilted PT-OP-K Range of Motion Start: 11/05/23 08:13 Freq: Status: Active Protocol: Document 11/05/23 08:14 SAK (Rec: 11/05/23 17:07 [facility] [id number]) Lumbar Spine Range of Motion Lumbar Spine Active Flexion 40 Extension 45 Lateral Flexion Left 45 Lateral Flexion Right 45 Comments stands in excess lumbar lordosis PT-OP-L Special Tests Start: 11/05/23 08:13 Freq: Status: Active Protocol: Document 11/05/23 08:14 SAK (Rec: 11/05/23 17:07 SAK [id number]) Special Tests Lumbar Spine Special Tests Straight Leg Raise Test Results - Compression Test Results - Stork Test Test Results - PT-OP-M Strength Start: 11/05/23 08:13 Freq: Status: Active Protocol: Document 11/05/23 08:14 SAK (Rec: 11/05/23 09:02 SAK [id number]) Trunk Strength Trunk Manual Muscle Testing Flexion 3- Fair- Extension 3+ Fair+ Core Stabilization poor PT-OP-Q Treatments Start: 11/05/23 08:13 Freq: Status: Active Protocol: Document 12/03/23 08:10 AB (Rec: 12/03/23 11:50 AB [id number]) Therapeutic Exercises Supine Exercises hamstring stretch Supine Exercise Name from hooklying Side bilateral Reps/Minutes X2 right X 1 left LE Comments Verbal cues for LE position and duration of stretch abdominal bracing with heel slide Side bilateral Reps/Minutes X10 Comments Verbal cues for self tactile cues for Transversus abdominis hip flexor stretch Supine Exercise Name modified Marcos stretch edge of bed Side bilateral Reps/Minutes X2 one minute Comments with AROM knee flexion bug Supine Exercise Name on mat Reps/Minutes X2 and X3 Comments cues for neutral spine during LE>UE return, mid range bridge Supine Exercise Name segmental Reps/Minutes 10x, Standing Exercises paloff press Side bilateral Resistance Tb #2 Reps/Minutes X10 Comments Verbal cues and visual cues, monitored for pain Other Exercises bird dog Side bilateral Reps/Minutes X 5 Comments small jar as tactile cue LS area PT-OP-T Assessment and Plan Start: 11/05/23 08:13 Freq: Status: Active Protocol: Document 12/03/23 08:10 AB (Rec: 12/03/23 11:50 AB [id number]) Physical Therapy Assessment Goals core and hip muscle weakness Short Term Goal (STG) patient to be instructed in individualized progressive HEP for purposes of strengthening and core stabilization as well as correct body mechanics for lifting STG Duration 12/14/23 Assistant Merchandiser Goal (LTG) Patient to be independent and compliant with HEP and demonstrate improvement in muscle strength to at least 4+ /5 all muscle groups and demonstrate correct lifting form for back protection without c/o pain LTG Duration 02/05/24 Oswestry Disability index score Impairment 18% Senior Living Goal (LTG) Decrease score to no greater than 8% as measure of decreased pain and improved function LTG Duration 02/05/24 postural impairment Short Term Goal (STG) Instruct patient in neutral posture, rationale, and postural correction exercises for back protection and health STG Duration 12/15/23 Assistant Merchandiser Goal (LTG) Patient to be able to demonstrate independent ability to perform postural correction exercises and demonstrate improved postural alignment statically, and dynamically with function LTG Duration 02/05/24 Assessment Summary Assessment Patient reports having no pain end of session. Increased difficulty with form in initiation of bird dog, improved with tactile cues. Increased difficulty holding position with bug without excessive abdominal/core activation and advised to Hold for this week and perform bracing with heel slide. Physical Therapy Plan Frequency and Duration Frequency of Treatment 2x/Week Duration of treatment (weeks) 12 Plan of Care Start Date 11/05/23 Plan of Care End Date 02/05/24 Next Visit Focus/Plan Next Note Type Treatment Note Next Visit Plan Next tx: review bug and discontinue bracing with heel slide if able to perform bug without excessive core/ abdominal activation, bird dog , paloff press with level 3 and possible add to HEP, sit to stand/possibly add weight wall posture UEs [place]. Add sport cord for dynamic progression. PT POC: Continue progression of core and postural correction exercises, closed chain functional as tolerated
--- NOTE | 2023-12-07 10:53 | PT.OTN ---
Current Diagnoses Spondylosis without myelopathy or radiculopathy, lumbar region (12/07/23) Spinal stenosis, lumbar region without neurogenic claudication (12/07/23) Abnormal posture (12/07/23) Weakness (12/07/23) Physical Therapy Treatment Note PT-OP-A Visit Information Start: 11/05/23 08:13 Freq: Status: Active Protocol: Document 12/07/23 08:57 AB (Rec: 12/07/23 10:53 AB [id number]) Out-Patient Physical Therapy Visit Information Visit Information Visit Type Treatment Note Visit Note Access Code [email or web address] Visit Start Time 09:03 Visit Stop Time 09:47 Visit Number [address] Visits 4 Evaluation Information Evaluation Date 11/05/23 PT-OP-B Current Condition Start: 11/05/23 08:13 Freq: Status: Active Protocol: Document 11/07/23 08:09 SAK (Rec: 11/07/23 09:03 SAK [id number]) Current Condition History of Current Condition Onset Date 40 years History of Current Condition carrying wood to a third floor level, piling on extra wood, eventually severe pain, couldn 't straighten up. Never went to the doctor. Yaneth een going to chirorpractor, helpful for awhile. Occasional pain left groin to knee, tightness and cramping. Then referred to Dr Ericka Calderon. x-ray as below. Given Celecoxib and it decreases pain to minimal. Walks several times per week 1 hr, has treadmill, has weights. Prior Treatments and Tests IMPRESSION: 1. Multilevel degenerative disc disease and facet hypertrophy as well as epidural lipomatosis as described in detail in the body of the report. 2. Mild osseous edema adjacent to the bilateral L2-3 facets extending into the L3 pedicles is likely related to facet arthropathy although acute trabecular bone injury is not excluded. 3. Synovial cyst is seen at the right L2-3 facet that mildly impinges upon the dorsal thecal sac and results in only mild narrowing of the spinal canal. Treatment Goals Patient/Caregiver Goals Strengthening, flexibility PT-OP-C Subjective Start: 11/05/23 08:13 Freq: Status: Active Protocol: Document 12/07/23 08:57 AB (Rec: 12/07/23 10:53 AB [id number]) OP-PT Subjective Patient Comments Patient Comments Patient reports his back is better, comments there is less pain, a little bit of pain. Patient rates low back pain 1-2/ start of session. Patient comments that he wasn' t doing heavy stuff since the previous session. PT-OP-F Manual Assessment Start: 11/05/23 08:13 Freq: Status: Active Protocol: Document 11/05/23 08:14 SAK (Rec: 11/05/23 17:05 [facility] [id number]) Manual Assessments Soft Tissue Assessment Soft Tissue Mobility Assessment increased tightness bilateral lumbar paraspinals PT-OP-G Mobility & Gait Start: 11/05/23 08:13 Freq: Status: Active Protocol: Document 11/05/23 08:14 SAK (Rec: 11/05/23 17:05 [facility] [id number]) OP Gait Assessment Gait Gait Assistance Required: Independent Able to Maintain Weight Bearing Status No During Gait Assistive Devices Assistive Device None Gait Deviations General Gait Pattern Flexed Trunk Factors Limiting Gait Function Factors Limiting Gait Function Decreased Strength,Pain PT-OP-H Neuro Start: 11/05/23 08:13 Freq: Status: Active Protocol: Document 11/05/23 08:14 SAK (Rec: 11/05/23 17:05 [facility] [id number]) Sensation Evaluation Gross Sensation Gross Sensation WNL Vital Signs Comments Vital Signs Comments not tested this date PT-OP-J Posture/Palpation/Skin Start: 11/05/23 08:13 Freq: Status: Active Protocol: Document 11/05/23 08:14 SAK (Rec: 11/05/23 09:02 [facility] [id number]) Posture Evaluation Position Standing Head/C-Spine Posture Forward Head T-Spine Posture Increased Kyphosis L-Spine Posture Increased Lordosis Pelvis Posture Anteriorly Tilted PT-OP-K Range of Motion Start: 11/05/23 08:13 Freq: Status: Active Protocol: Document 11/05/23 08:14 SAK (Rec: 11/05/23 17:07 [facility] [id number]) Lumbar Spine Range of Motion Lumbar Spine Active Flexion 40 Extension 45 Lateral Flexion Left 45 Lateral Flexion Right 45 Comments stands in excess lumbar lordosis PT-OP-L Special Tests Start: 11/05/23 08:13 Freq: Status: Active Protocol: Document 11/05/23 08:14 SAK (Rec: 11/05/23 17:07 [facility] [id number]) Special Tests Lumbar Spine Special Tests Straight Leg Raise Test Results - Compression Test Results - Stork Test Test Results - PT-OP-M Strength Start: 11/05/23 08:13 Freq: Status: Active Protocol: Document 11/05/23 08:14 SAK (Rec: 11/05/23 09:02 SAK [id number]) Trunk Strength Trunk Manual Muscle Testing Flexion 3- Fair- Extension 3+ Fair+ Core Stabilization poor PT-OP-Q Treatments Start: 11/05/23 08:13 Freq: Status: Active Protocol: Document 12/07/23 08:57 AB (Rec: 12/07/23 10:53 AB [id number]) Therapeutic Exercises Supine Exercises hamstring stretch Supine Exercise Name from hooklying Side bilateral Reps/Minutes X3 each Comments Verbal cues for LE position and duration of stretch abdominal bracing with heel slide Supine Exercise Name LE extension this session not heel slide Side bilateral Reps/Minutes X10 Comments Verbal cues for self tactile cues for Transversus abdominis hip flexor stretch Supine Exercise Name modified Marcos stretch edge of bed Side bilateral Reps/Minutes X2 one minute Comments with AROM knee flexion Standing Exercises paloff press Standing Exercise Name to HEP Side bilateral Resistance Tb #2 and level 3 band Reps/Minutes 2X15 ( each color X 15) Comments Verbal cues and visual cues, monitored for pain sit to stand Standing Exercise Name STS > squat mechanics Reps/Minutes 10x X2 Comments Pt ed mech of sit to stand and self tact cues for hip hinge PT-OP-T Assessment and Plan Start: 11/05/23 08:13 Freq: Status: Active Protocol: Document 12/07/23 08:57 AB (Rec: 12/07/23 10:53 AB [id number]) Physical Therapy Assessment Goals core and hip muscle weakness Short Term Goal (STG) patient to be instructed in individualized progressive HEP for purposes of strengthening and core stabilization as well as correct body mechanics for lifting STG Duration 12/14/23 Telephonic Rn Goal (LTG) Patient to be independent and compliant with HEP and demonstrate improvement in muscle strength to at least 4+ /5 all muscle groups and demonstrate correct lifting form for back protection without c/o pain LTG Duration 02/05/24 Oswestry Disability index score Impairment 18% Telephonic Rn Goal (LTG) Decrease score to no greater than 8% as measure of decreased pain and improved function LTG Duration 02/05/24 postural impairment Short Term Goal (STG) Instruct patient in neutral posture, rationale, and postural correction exercises for back protection and health STG Duration 12/15/23 Telephonic Rn Goal (LTG) Patient to be able to demonstrate independent ability to perform postural correction exercises and demonstrate improved postural alignment statically, and dynamically with function LTG Duration 02/05/24 Assessment Summary Assessment Patient continues to be unable to perform bug without increase rectus activation, but was able to progress to abdominal bracing with LE extension, and was able to demonstrate a good hip hinge with sit to stand. 0/10 pain end of session. Physical Therapy Plan Frequency and Duration Frequency of Treatment 2x/Week Duration of treatment (weeks) 12 Plan of Care Start Date 11/05/23 Plan of Care End Date 02/05/24 Next Visit Focus/Plan Next Visit Plan Next tx: trial of plank/ modified review bug and discontinue bracing with LE extension if able to perform bug without excessive core/abdominal activation, bird dog, paloff press with level 3 and possible add to HEP, sit to stand/possibly add weight wall posture UEs [place]. Add sport cord for dynamic progression. PT POC: Continue progression of core and postural correction exercises, closed chain functional as tolerated
--- NOTE | 2023-12-12 15:20 | PT.OTN ---
Current Diagnoses Spondylosis without myelopathy or radiculopathy, lumbar region (12/12/23) Spinal stenosis, lumbar region without neurogenic claudication (12/12/23) Abnormal posture (12/12/23) Weakness (12/12/23) Physical Therapy Treatment Note PT-OP-A Visit Information Start: 11/05/23 08:13 Freq: Status: Active Protocol: Document 12/12/23 14:34 SAK (Rec: 12/12/23 15:19 [facility] [id number]) Out-Patient Physical Therapy Visit Information Visit Information Visit Type Treatment Note Visit Start Time 14:35 Visit Stop Time 15:15 Visit Number 7 Number of EQUINE INTER[employer] Visits 0 Evaluation Information Evaluation Date 11/05/23 PT-OP-B Current Condition Start: 11/05/23 08:13 Freq: Status: Active Protocol: Document 11/07/23 08:09 SAK (Rec: 11/07/23 09:03 SAK [id number]) Current Condition History of Current Condition Onset Date 40 years History of Current Condition carrying wood to a third floor level, piling on extra wood, eventually severe pain, couldn 't straighten up. Never went to the doctor. Yaneth een going to chirorpractor, helpful for awhile. Occasional pain left groin to knee, tightness and cramping. Then referred to Dr Ericka Calderon. x-ray as below. Given Celecoxib and it decreases pain to minimal. Walks several times per week 1 hr, has treadmill, has weights. Prior Treatments and Tests IMPRESSION: 1. Multilevel degenerative disc disease and facet hypertrophy as well as epidural lipomatosis as described in detail in the body of the report. 2. Mild osseous edema adjacent to the bilateral L2-3 facets extending into the L3 pedicles is likely related to facet arthropathy although acute trabecular bone injury is not excluded. 3. Synovial cyst is seen at the right L2-3 facet that mildly impinges upon the dorsal thecal sac and results in only mild narrowing of the spinal canal. Treatment Goals Patient/Caregiver Goals Strengthening, flexibility PT-OP-C Subjective Start: 11/05/23 08:13 Freq: Status: Active Protocol: Document 12/12/23 14:34 SAK (Rec: 12/12/23 15:19 SAK [id number]) OP-PT Subjective Patient Comments Patient Comments No pain today so far. PT-OP-F Manual Assessment Start: 11/05/23 08:13 Freq: Status: Active Protocol: Document 11/05/23 08:14 SAK (Rec: 11/05/23 17:05 SAK [id number]) Manual Assessments Soft Tissue Assessment Soft Tissue Mobility Assessment increased tightness bilateral lumbar paraspinals PT-OP-G Mobility & Gait Start: 11/05/23 08:13 Freq: Status: Active Protocol: Document 11/05/23 08:14 SAK (Rec: 11/05/23 17:05 SAK [id number]) OP Gait Assessment Gait Gait Assistance Required: Independent Able to Maintain Weight Bearing Status No During Gait Assistive Devices Assistive Device None Gait Deviations General Gait Pattern Flexed Trunk Factors Limiting Gait Function Factors Limiting Gait Function Decreased Strength,Pain PT-OP-H Neuro Start: 11/05/23 08:13 Freq: Status: Active Protocol: Document 11/05/23 08:14 SAK (Rec: 11/05/23 17:05 SAK [id number]) Sensation Evaluation Gross Sensation Gross Sensation WNL Vital Signs Comments Vital Signs Comments not tested this date PT-OP-J Posture/Palpation/Skin Start: 11/05/23 08:13 Freq: Status: Active Protocol: Document 11/05/23 08:14 SAK (Rec: 11/05/23 09:02 SAK [id number]) Posture Evaluation Position Standing Head/C-Spine Posture Forward Head T-Spine Posture Increased Kyphosis L-Spine Posture Increased Lordosis Pelvis Posture Anteriorly Tilted PT-OP-K Range of Motion Start: 11/05/23 08:13 Freq: Status: Active Protocol: Document 11/05/23 08:14 SAK (Rec: 11/05/23 17:07 SAK [id number]) Lumbar Spine Range of Motion Lumbar Spine Active Flexion 40 Extension 45 Lateral Flexion Left 45 Lateral Flexion Right 45 Comments stands in excess lumbar lordosis PT-OP-L Special Tests Start: 11/05/23 08:13 Freq: Status: Active Protocol: Document 11/05/23 08:14 SAK (Rec: 11/05/23 17:07 SAK [id number]) Special Tests Lumbar Spine Special Tests Straight Leg Raise Test Results - Compression Test Results - Stork Test Test Results - PT-OP-M Strength Start: 11/05/23 08:13 Freq: Status: Active Protocol: Document 11/05/23 08:14 SAK (Rec: 11/05/23 09:02 [facility] [id number]) Trunk Strength Trunk Manual Muscle Testing Flexion 3- Fair- Extension 3+ Fair+ Core Stabilization poor PT-OP-Q Treatments Start: 11/05/23 08:13 Freq: Status: Active Protocol: Document 12/12/23 14:34 [facility] (Rec: 12/12/23 15:19 [facility] [id number]) Therapeutic Exercises Supine Exercises SLR Reps/Minutes 10x Comments cues for core stab hamstring stretch Supine Exercise Name from hooklying Side bilateral Reps/Minutes X3 each Comments Verbal cues for LE position and duration of stretch abdominal bracing with heel slide Supine Exercise Name LE extension this session not heel slide Side bilateral Reps/Minutes X10 Comments Verbal cues for self tactile cues for Transversus abdominis hip flexor stretch Supine Exercise Name modified Marcos stretch edge of bed Side bilateral Reps/Minutes X2 one minute Comments with AROM knee flexion bug Supine Exercise Name on mat Reps/Minutes X2 and X3 Comments cues for neutral spine during LE>UE return, mid range bridge Supine Exercise Name segmental edwina and unil Reps/Minutes 10x,5 Sidelying Exercises clam Reps/Minutes 10x hip ab Reps/Minutes 10x Standing Exercises lateral raise, bicep curls, Resistance 8# Reps/Minutes 10x bent over row Resistance bench, 8# paloff press Standing Exercise Name to HEP Side bilateral Resistance level 3 band Reps/Minutes 15x2 Comments Verbal cues and visual cues, monitored for pain sit to stand Standing Exercise Name STS > squat mechanics Reps/Minutes 10x X2 Comments Pt ed mech of sit to stand and self tact cues for hip hinge Other Exercises child's pose Reps/Minutes 30SH x2 Comments cued knees WBOS, arms front- good back stretch reported bird dog Side bilateral Reps/Minutes X 5 Comments small jar as tactile cue LS area PT-OP-T Assessment and Plan Start: 11/05/23 08:13 Freq: Status: Active Protocol: Document 12/12/23 14:34 [facility] (Rec: 12/12/23 15:19 [facility] [id number]) Physical Therapy Assessment Goals core and hip muscle weakness Short Term Goal (STG) patient to be instructed in individualized progressive HEP for purposes of strengthening and core stabilization as well as correct body mechanics for lifting STG Duration 12/14/23 Senior Care Goal (LTG) Patient to be independent and compliant with HEP and demonstrate improvement in muscle strength to at least 4+ /5 all muscle groups and demonstrate correct lifting form for back protection without c/o pain LTG Duration 02/05/24 Oswestry Disability index score Impairment 18% Senior Care Goal (LTG) Decrease score to no greater than 8% as measure of decreased pain and improved function LTG Duration 02/05/24 postural impairment Short Term Goal (STG) Instruct patient in neutral posture, rationale, and postural correction exercises for back protection and health STG Duration 12/15/23 Senior Care Goal (LTG) Patient to be able to demonstrate independent ability to perform postural correction exercises and demonstrate improved postural alignment statically, and dynamically with function LTG Duration 02/05/24 Progress Towards Goals Progress Towards Goals Progressing Toward Goals Assessment Summary Assessment Good progress, patient self monitoring abdominals, discussed and practiced UE weight lifting ex with cues for form and core activation. Good progress. Physical Therapy Plan Frequency and Duration Frequency of Treatment 2x/Week Duration of treatment (weeks) 12 Plan of Care Start Date 11/05/23 Plan of Care End Date 02/05/24 Next Visit Focus/Plan Next Note Type Treatment Note Next Visit Plan consider lift, squats, lunges for continued strengthening, postural emphasis with core stab functional movements.
--- NOTE | 2023-12-14 14:19 | PT.OTN ---
Current Diagnoses Spondylosis without myelopathy or radiculopathy, lumbar region (12/14/23) Spinal stenosis, lumbar region without neurogenic claudication (12/14/23) Abnormal posture (12/14/23) Weakness (12/14/23) Physical Therapy Treatment Note PT-OP-A Visit Information Start: 11/05/23 08:13 Freq: Status: Active Protocol: Document 12/14/23 10:35 AB (Rec: 12/14/23 14:19 AB [id number]) Out-Patient Physical Therapy Visit Information Visit Information Visit Type Treatment Note Visit Note Access Code [email or web address] Visit Start Time 10:36 Visit Stop Time 11:20 Visit Number 8 Number of CLINICAL DENTAL TECHNICIAN Visits 1 Evaluation Information Evaluation Date 11/05/23 PT-OP-B Current Condition Start: 11/05/23 08:13 Freq: Status: Active Protocol: Document 11/07/23 08:09 SAK (Rec: 11/07/23 09:03 SAK [id number]) Current Condition History of Current Condition Onset Date 40 years History of Current Condition carrying wood to a third floor level, piling on extra wood, eventually severe pain, couldn 't straighten up. Never went to the doctor. Yaneth een going to chirorpractor, helpful for awhile. Occasional pain left groin to knee, tightness and cramping. Then referred to Dr Ericka Calderon. x-ray as below. Given Celecoxib and it decreases pain to minimal. Walks several times per week 1 hr, has treadmill, has weights. Prior Treatments and Tests IMPRESSION: 1. Multilevel degenerative disc disease and facet hypertrophy as well as epidural lipomatosis as described in detail in the body of the report. 2. Mild osseous edema adjacent to the bilateral L2-3 facets extending into the L3 pedicles is likely related to facet arthropathy although acute trabecular bone injury is not excluded. 3. Synovial cyst is seen at the right L2-3 facet that mildly impinges upon the dorsal thecal sac and results in only mild narrowing of the spinal canal. Treatment Goals Patient/Caregiver Goals Strengthening, flexibility PT-OP-C Subjective Start: 11/05/23 08:13 Freq: Status: Active Protocol: Document 12/14/23 10:35 AB (Rec: 12/14/23 14:19 AB [id number]) OP-PT Subjective Patient Comments Patient Comments Patient reports having no back pain, no discomfort, feels ct tech on feet, more mobile. Patient reports he is quicker on the steps. Patient reports he has not yet tried to mow the lawn. PT-OP-F Manual Assessment Start: 11/05/23 08:13 Freq: Status: Active Protocol: Document 11/05/23 08:14 SAK (Rec: 11/05/23 17:05 [facility] [id number]) Manual Assessments Soft Tissue Assessment Soft Tissue Mobility Assessment increased tightness bilateral lumbar paraspinals PT-OP-G Mobility & Gait Start: 11/05/23 08:13 Freq: Status: Active Protocol: Document 11/05/23 08:14 SAK (Rec: 11/05/23 17:05 [facility] [id number]) OP Gait Assessment Gait Gait Assistance Required: Independent Able to Maintain Weight Bearing Status No During Gait Assistive Devices Assistive Device None Gait Deviations General Gait Pattern Flexed Trunk Factors Limiting Gait Function Factors Limiting Gait Function Decreased Strength,Pain PT-OP-H Neuro Start: 11/05/23 08:13 Freq: Status: Active Protocol: Document 11/05/23 08:14 SAK (Rec: 11/05/23 17:05 [facility] [id number]) Sensation Evaluation Gross Sensation Gross Sensation WNL Vital Signs Comments Vital Signs Comments not tested this date PT-OP-J Posture/Palpation/Skin Start: 11/05/23 08:13 Freq: Status: Active Protocol: Document 11/05/23 08:14 SAK (Rec: 11/05/23 09:02 [facility] [id number]) Posture Evaluation Position Standing Head/C-Spine Posture Forward Head T-Spine Posture Increased Kyphosis L-Spine Posture Increased Lordosis Pelvis Posture Anteriorly Tilted PT-OP-K Range of Motion Start: 11/05/23 08:13 Freq: Status: Active Protocol: Document 11/05/23 08:14 SAK (Rec: 11/05/23 17:07 [facility] [id number]) Lumbar Spine Range of Motion Lumbar Spine Active Flexion 40 Extension 45 Lateral Flexion Left 45 Lateral Flexion Right 45 Comments stands in excess lumbar lordosis PT-OP-L Special Tests Start: 11/05/23 08:13 Freq: Status: Active Protocol: Document 11/05/23 08:14 SAK (Rec: 11/05/23 17:07 [facility] [id number]) Special Tests Lumbar Spine Special Tests Straight Leg Raise Test Results - Compression Test Results - Stork Test Test Results - PT-OP-M Strength Start: 11/05/23 08:13 Freq: Status: Active Protocol: Document 11/05/23 08:14 SAK (Rec: 11/05/23 09:02 SAK [id number]) Trunk Strength Trunk Manual Muscle Testing Flexion 3- Fair- Extension 3+ Fair+ Core Stabilization poor PT-OP-Q Treatments Start: 11/05/23 08:13 Freq: Status: Active Protocol: Document 12/14/23 10:35 AB (Rec: 12/14/23 14:19 AB [id number]) Therapeutic Exercises Standing Exercises forward T Standing Exercise Name with UE support Side bilateral Resistance 16 x Comments verbal and visual cues lunges Standing Exercise Name mini with mat close Side bilateral Reps/Minutes 6X 2 Comments verbal and visual cues for hip hinge lift Side bilateral Reps/Minutes X8 X 4 Comments with self tactile cues, dowel, and band squat with band Side bilateral Resistance level 3 band Reps/Minutes 2X10 Comments verbal cues to squat to a depth that does not increase pain glute med isometric Side bilateral Reps/Minutes one minute each LE Comments verbal and visual cues lateral raise, bicep curls, Resistance 10# Reps/Minutes X15 paloff press Standing Exercise Name to HEP Side bilateral Resistance level 5 band Reps/Minutes 15x2 Comments Verbal cues and visual cues, monitored for pain Self-Care/Home Management Treatment Education Other Education Patient ed to keep lawnmower close, consider doing lawn in 2 sessions, and to perform the more difficult sections of the yard first prior to fatigue. PT-OP-T Assessment and Plan Start: 11/05/23 08:13 Freq: Status: Active Protocol: Document 12/14/23 10:35 AB (Rec: 12/14/23 14:19 AB [id number]) Physical Therapy Assessment Assessment Summary Assessment Patient reports feeling tired end of session. Increased difficulty holding form with lift. Good return demonstration with all other exercises, depth of squats limited by some knee pain, and slightly unsteady with lunges . Physical Therapy Plan Frequency and Duration Frequency of Treatment 2x/Week Duration of treatment (weeks) 12 Plan of Care Start Date 11/05/23 Plan of Care End Date 02/05/24 Next Visit Focus/Plan Next Note Type Treatment Note Next Visit Plan Review lift, squats, lunges for continued strengthening, postural emphasis with core stab functional movements. * deadlifts require significant cues possibly trial of HS stretch and forwardT/single leg lift with UE use prior to lift training.
--- NOTE | 2023-12-17 12:04 | PT.OTN ---
Current Diagnoses Spondylosis without myelopathy or radiculopathy, lumbar region (12/17/23) Spinal stenosis, lumbar region without neurogenic claudication (12/17/23) Abnormal posture (12/17/23) Weakness (12/17/23) Physical Therapy Treatment Note PT-OP-A Visit Information Start: 11/05/23 08:13 Freq: Status: Active Protocol: Document 12/17/23 09:48 SAK (Rec: 12/17/23 10:30 [facility] [id number]) Out-Patient Physical Therapy Visit Information Visit Information Visit Type Treatment Note Visit Start Time 09:48 Visit Stop Time 10:30 Visit Number 9 Evaluation Information Evaluation Date 11/05/23 PT-OP-B Current Condition Start: 11/05/23 08:13 Freq: Status: Active Protocol: Document 11/07/23 08:09 SAK (Rec: 11/07/23 09:03 SAK [id number]) Current Condition History of Current Condition Onset Date 40 years History of Current Condition carrying wood to a third floor level, piling on extra wood, eventually severe pain, couldn 't straighten up. Never went to the doctor. Yaneth een going to chirorpractor, helpful for awhile. Occasional pain left groin to knee, tightness and cramping. Then referred to Dr Ericka Calderon. x-ray as below. Given Celecoxib and it decreases pain to minimal. Walks several times per week 1 hr, has treadmill, has weights. Prior Treatments and Tests IMPRESSION: 1. Multilevel degenerative disc disease and facet hypertrophy as well as epidural lipomatosis as described in detail in the body of the report. 2. Mild osseous edema adjacent to the bilateral L2-3 facets extending into the L3 pedicles is likely related to facet arthropathy although acute trabecular bone injury is not excluded. 3. Synovial cyst is seen at the right L2-3 facet that mildly impinges upon the dorsal thecal sac and results in only mild narrowing of the spinal canal. Treatment Goals Patient/Caregiver Goals Strengthening, flexibility PT-OP-C Subjective Start: 11/05/23 08:13 Freq: Status: Active Protocol: Document 12/17/23 09:48 SAK (Rec: 12/17/23 10:30 SAK [id number]) OP-PT Subjective Patient Comments Patient Comments No pain. Was on road trip so no exercises. Still hasn't mowed lawn yet PT-OP-F Manual Assessment Start: 11/05/23 08:13 Freq: Status: Active Protocol: Document 11/05/23 08:14 SAK (Rec: 11/05/23 17:05 SAK [id number]) Manual Assessments Soft Tissue Assessment Soft Tissue Mobility Assessment increased tightness bilateral lumbar paraspinals PT-OP-G Mobility & Gait Start: 11/05/23 08:13 Freq: Status: Active Protocol: Document 11/05/23 08:14 SAK (Rec: 11/05/23 17:05 SAK [id number]) OP Gait Assessment Gait Gait Assistance Required: Independent Able to Maintain Weight Bearing Status No During Gait Assistive Devices Assistive Device None Gait Deviations General Gait Pattern Flexed Trunk Factors Limiting Gait Function Factors Limiting Gait Function Decreased Strength,Pain PT-OP-H Neuro Start: 11/05/23 08:13 Freq: Status: Active Protocol: Document 11/05/23 08:14 SAK (Rec: 11/05/23 17:05 SAK [id number]) Sensation Evaluation Gross Sensation Gross Sensation WNL Vital Signs Comments Vital Signs Comments not tested this date PT-OP-J Posture/Palpation/Skin Start: 11/05/23 08:13 Freq: Status: Active Protocol: Document 11/05/23 08:14 SAK (Rec: 11/05/23 09:02 [facility] [id number]) Posture Evaluation Position Standing Head/C-Spine Posture Forward Head T-Spine Posture Increased Kyphosis L-Spine Posture Increased Lordosis Pelvis Posture Anteriorly Tilted PT-OP-K Range of Motion Start: 11/05/23 08:13 Freq: Status: Active Protocol: Document 11/05/23 08:14 SAK (Rec: 11/05/23 17:07 [facility] [id number]) Lumbar Spine Range of Motion Lumbar Spine Active Flexion 40 Extension 45 Lateral Flexion Left 45 Lateral Flexion Right 45 Comments stands in excess lumbar lordosis PT-OP-L Special Tests Start: 11/05/23 08:13 Freq: Status: Active Protocol: Document 11/05/23 08:14 SAK (Rec: 11/05/23 17:07 SAK [id number]) Special Tests Lumbar Spine Special Tests Straight Leg Raise Test Results - Compression Test Results - Stork Test Test Results - PT-OP-M Strength Start: 11/05/23 08:13 Freq: Status: Active Protocol: Document 11/05/23 08:14 SAK (Rec: 11/05/23 09:02 [facility] [id number]) Trunk Strength Trunk Manual Muscle Testing Flexion 3- Fair- Extension 3+ Fair+ Core Stabilization poor PT-OP-Q Treatments Start: 11/05/23 08:13 Freq: Status: Active Protocol: Document 12/17/23 09:48 [facility] (Rec: 12/17/23 10:30 [facility] [id number]) Gym Equipment Sport Cord red Exercise Details Fwd/bck/side Reps/Duration 5x ea Therapeutic Exercises Sitting Exercises figure 4 stretch Reps/Minutes 2x30 HS stretch Reps/Minutes 2x30 Standing Exercises lunges Standing Exercise Name mini with mat close Side bilateral Reps/Minutes 6X 2 Comments verbal and visual cues for hip hinge lift Side bilateral Reps/Minutes X8 X 4 Comments with self tactile cues, dowel, and band squat with band Standing Exercise Name chair squat Reps/Minutes 10x Comments cues for long spine, hip hinge . lateral raise, bicep curls, Resistance 10# Reps/Minutes X15 Comments against wall, cues for spine against wall sit to stand Standing Exercise Name STS > squat mechanics Reps/Minutes 10x X2 Comments Pt ed mech of sit to stand and self tact cues for hip hinge wall posture Standing Exercise Name with segmental roll up and roll down, arms at side Reps/Minutes 5 min Comments Max cues ft back more toward wall flat (no heel raise), PPT , head retract Other Exercises diagonal chop Equipment Used med TB Reps/Minutes 10x PT-OP-T Assessment and Plan Start: 11/05/23 08:13 Freq: Status: Active Protocol: Document 12/17/23 09:48 [facility] (Rec: 12/17/23 10:30 [facility] [id number]) Physical Therapy Assessment Goals core and hip muscle weakness Short Term Goal (STG) patient to be instructed in individualized progressive HEP for purposes of strengthening and core stabilization as well as correct body mechanics for lifting STG Duration 12/14/23 Halfway Goal (LTG) Patient to be independent and compliant with HEP and demonstrate improvement in muscle strength to at least 4+ /5 all muscle groups and demonstrate correct lifting form for back protection without c/o pain LTG Duration 02/05/24 Oswestry Disability index score Impairment 18% Night Guard Goal (LTG) Decrease score to no greater than 8% as measure of decreased pain and improved function LTG Duration 02/05/24 postural impairment Short Term Goal (STG) Instruct patient in neutral posture, rationale, and postural correction exercises for back protection and health STG Duration 12/15/23 Halfway Goal (LTG) Patient to be able to demonstrate independent ability to perform postural correction exercises and demonstrate improved postural alignment statically, and dynamically with function LTG Duration 02/05/24 Progress Towards Goals Progress Towards Goals Progressing Toward Goals Assessment Summary Assessment Improving postural awareness, ability to stabilize with core all ex. Cues for long spine with hip hinge. No pain today but has been sitting in car a lot, min physical activity. Physical Therapy Plan Frequency and Duration Frequency of Treatment 2x/Week Duration of treatment (weeks) 12 Plan of Care Start Date 11/05/23 Plan of Care End Date 02/05/24 Next Visit Focus/Plan Next Note Type Treatment Note Next Visit Plan Continue progression of core strengthening and postural correction exercises; functional closed chain as able.
--- NOTE | 2023-12-17 12:05 | PT.OTN ---
Current Diagnoses Spondylosis without myelopathy or radiculopathy, lumbar region (12/17/23) Spinal stenosis, lumbar region without neurogenic claudication (12/17/23) Abnormal posture (12/17/23) Weakness (12/17/23) Physical Therapy Treatment Note PT-OP-A Visit Information Start: 11/05/23 08:13 Freq: Status: Active Protocol: Document 12/17/23 09:48 SAK (Rec: 12/17/23 10:30 [facility] [id number]) Out-Patient Physical Therapy Visit Information Visit Information Visit Type Treatment Note Visit Start Time 09:48 Visit Stop Time 10:30 Visit Number 9 Evaluation Information Evaluation Date 11/05/23 PT-OP-B Current Condition Start: 11/05/23 08:13 Freq: Status: Active Protocol: Document 11/07/23 08:09 SAK (Rec: 11/07/23 09:03 SAK [id number]) Current Condition History of Current Condition Onset Date 40 years History of Current Condition carrying wood to a third floor level, piling on extra wood, eventually severe pain, couldn 't straighten up. Never went to the doctor. Yaneth een going to chirorpractor, helpful for awhile. Occasional pain left groin to knee, tightness and cramping. Then referred to Dr Ericka Calderon. x-ray as below. Given Celecoxib and it decreases pain to minimal. Walks several times per week 1 hr, has treadmill, has weights. Prior Treatments and Tests IMPRESSION: 1. Multilevel degenerative disc disease and facet hypertrophy as well as epidural lipomatosis as described in detail in the body of the report. 2. Mild osseous edema adjacent to the bilateral L2-3 facets extending into the L3 pedicles is likely related to facet arthropathy although acute trabecular bone injury is not excluded. 3. Synovial cyst is seen at the right L2-3 facet that mildly impinges upon the dorsal thecal sac and results in only mild narrowing of the spinal canal. Treatment Goals Patient/Caregiver Goals Strengthening, flexibility PT-OP-C Subjective Start: 11/05/23 08:13 Freq: Status: Active Protocol: Document 12/17/23 09:48 SAK (Rec: 12/17/23 10:30 SAK [id number]) OP-PT Subjective Patient Comments Patient Comments No pain. Was on road trip so no exercises. Still hasn't mowed lawn yet PT-OP-F Manual Assessment Start: 11/05/23 08:13 Freq: Status: Active Protocol: Document 11/05/23 08:14 SAK (Rec: 11/05/23 17:05 SAK [id number]) Manual Assessments Soft Tissue Assessment Soft Tissue Mobility Assessment increased tightness bilateral lumbar paraspinals PT-OP-G Mobility & Gait Start: 11/05/23 08:13 Freq: Status: Active Protocol: Document 11/05/23 08:14 SAK (Rec: 11/05/23 17:05 SAK [id number]) OP Gait Assessment Gait Gait Assistance Required: Independent Able to Maintain Weight Bearing Status No During Gait Assistive Devices Assistive Device None Gait Deviations General Gait Pattern Flexed Trunk Factors Limiting Gait Function Factors Limiting Gait Function Decreased Strength,Pain PT-OP-H Neuro Start: 11/05/23 08:13 Freq: Status: Active Protocol: Document 11/05/23 08:14 SAK (Rec: 11/05/23 17:05 SAK [id number]) Sensation Evaluation Gross Sensation Gross Sensation WNL Vital Signs Comments Vital Signs Comments not tested this date PT-OP-J Posture/Palpation/Skin Start: 11/05/23 08:13 Freq: Status: Active Protocol: Document 11/05/23 08:14 SAK (Rec: 11/05/23 09:02 [facility] [id number]) Posture Evaluation Position Standing Head/C-Spine Posture Forward Head T-Spine Posture Increased Kyphosis L-Spine Posture Increased Lordosis Pelvis Posture Anteriorly Tilted PT-OP-K Range of Motion Start: 11/05/23 08:13 Freq: Status: Active Protocol: Document 11/05/23 08:14 SAK (Rec: 11/05/23 17:07 [facility] [id number]) Lumbar Spine Range of Motion Lumbar Spine Active Flexion 40 Extension 45 Lateral Flexion Left 45 Lateral Flexion Right 45 Comments stands in excess lumbar lordosis PT-OP-L Special Tests Start: 11/05/23 08:13 Freq: Status: Active Protocol: Document 11/05/23 08:14 SAK (Rec: 11/05/23 17:07 SAK [id number]) Special Tests Lumbar Spine Special Tests Straight Leg Raise Test Results - Compression Test Results - Stork Test Test Results - PT-OP-M Strength Start: 11/05/23 08:13 Freq: Status: Active Protocol: Document 11/05/23 08:14 SAK (Rec: 11/05/23 09:02 [facility] [id number]) Trunk Strength Trunk Manual Muscle Testing Flexion 3- Fair- Extension 3+ Fair+ Core Stabilization poor PT-OP-Q Treatments Start: 11/05/23 08:13 Freq: Status: Active Protocol: Document 12/17/23 09:48 [facility] (Rec: 12/17/23 10:30 [facility] [id number]) Gym Equipment Sport Cord red Exercise Details Fwd/bck/side Reps/Duration 5x ea Therapeutic Exercises Sitting Exercises figure 4 stretch Reps/Minutes 2x30 HS stretch Reps/Minutes 2x30 Standing Exercises lunges Standing Exercise Name mini with mat close Side bilateral Reps/Minutes 6X 2 Comments verbal and visual cues for hip hinge lift Side bilateral Reps/Minutes X8 X 4 Comments with self tactile cues, dowel, and band squat with band Standing Exercise Name chair squat Reps/Minutes 10x Comments cues for long spine, hip hinge . lateral raise, bicep curls, Resistance 10# Reps/Minutes X15 Comments against wall, cues for spine against wall sit to stand Standing Exercise Name STS > squat mechanics Reps/Minutes 10x X2 Comments Pt ed mech of sit to stand and self tact cues for hip hinge wall posture Standing Exercise Name with segmental roll up and roll down, arms at side Reps/Minutes 5 min Comments Max cues ft back more toward wall flat (no heel raise), PPT , head retract Other Exercises diagonal chop Equipment Used med TB Reps/Minutes 10x PT-OP-T Assessment and Plan Start: 11/05/23 08:13 Freq: Status: Active Protocol: Document 12/17/23 09:48 [facility] (Rec: 12/17/23 10:30 [facility] [id number]) Physical Therapy Assessment Goals core and hip muscle weakness Short Term Goal (STG) patient to be instructed in individualized progressive HEP for purposes of strengthening and core stabilization as well as correct body mechanics for lifting STG Duration 12/14/23 Residential Goal (LTG) Patient to be independent and compliant with HEP and demonstrate improvement in muscle strength to at least 4+ /5 all muscle groups and demonstrate correct lifting form for back protection without c/o pain LTG Duration 02/05/24 Oswestry Disability index score Impairment 18% Floodplain Manager Goal (LTG) Decrease score to no greater than 8% as measure of decreased pain and improved function LTG Duration 02/05/24 postural impairment Short Term Goal (STG) Instruct patient in neutral posture, rationale, and postural correction exercises for back protection and health STG Duration 12/15/23 Residential Goal (LTG) Patient to be able to demonstrate independent ability to perform postural correction exercises and demonstrate improved postural alignment statically, and dynamically with function LTG Duration 02/05/24 Progress Towards Goals Progress Towards Goals Progressing Toward Goals Assessment Summary Assessment Improving postural awareness, ability to stabilize with core all ex. Cues for long spine with hip hinge. No pain today but has been sitting in car a lot, min physical activity. Physical Therapy Plan Frequency and Duration Frequency of Treatment 2x/Week Duration of treatment (weeks) 12 Plan of Care Start Date 11/05/23 Plan of Care End Date 02/05/24 Next Visit Focus/Plan Next Note Type Treatment Note Next Visit Plan Continue progression of core strengthening and postural correction exercises; functional closed chain as able.
--- NOTE | 2023-12-20 16:07 | PT.OTN ---
Current Diagnoses Spondylosis without myelopathy or radiculopathy, lumbar region (12/20/23) Spinal stenosis, lumbar region without neurogenic claudication (12/20/23) Abnormal posture (12/20/23) Weakness (12/20/23) Physical Therapy Treatment Note PT-OP-A Visit Information Start: 11/05/23 08:13 Freq: Status: Active Protocol: Document 12/20/23 09:05 [facility] (Rec: 12/20/23 09:46 [facility] [id number]) Out-Patient Physical Therapy Visit Information Visit Information Visit Type Treatment Note Visit Start Time 09:05 Visit Stop Time 09:45 Visit Number 10 Evaluation Information Evaluation Date 11/05/23 PT-OP-B Current Condition Start: 11/05/23 08:13 Freq: Status: Active Protocol: Document 12/20/23 09:05 [facility] (Rec: 12/20/23 09:46 [facility] [id number]) Current Condition History of Current Condition Onset Date 40 years History of Current Condition carrying wood to a third floor level, piling on extra wood, eventually severe pain, couldn 't straighten up. Never went to the doctor. Yaneth een going to chirorpractor, helpful for awhile. Occasional pain left groin to knee, tightness and cramping. Then referred to Dr Ericka Calderon. x-ray as below. Given Celecoxib and it decreases pain to minimal. Walks several times per week 1 hr, has treadmill, has weights. Prior Treatments and Tests IMPRESSION: 1. Multilevel degenerative disc disease and facet hypertrophy as well as epidural lipomatosis as described in detail in the body of the report. 2. Mild osseous edema adjacent to the bilateral L2-3 facets extending into the L3 pedicles is likely related to facet arthropathy although acute trabecular bone injury is not excluded. 3. Synovial cyst is seen at the right L2-3 facet that mildly impinges upon the dorsal thecal sac and results in only mild narrowing of the spinal canal. PT-OP-C Subjective Start: 11/05/23 08:13 Freq: Status: Active Protocol: Document 12/20/23 09:05 [facility] (Rec: 12/20/23 09:46 [facility] [id number]) OP-PT Subjective Patient Comments Patient Comments Mowed the lawn last night, a little soreness 07/11. PT-OP-F Manual Assessment Start: 11/05/23 08:13 Freq: Status: Active Protocol: Document 11/05/23 08:14 SAK (Rec: 11/05/23 17:05 SAK [id number]) Manual Assessments Soft Tissue Assessment Soft Tissue Mobility Assessment increased tightness bilateral lumbar paraspinals PT-OP-G Mobility & Gait Start: 11/05/23 08:13 Freq: Status: Active Protocol: Document 11/05/23 08:14 SAK (Rec: 11/05/23 17:05 SAK [id number]) OP Gait Assessment Gait Gait Assistance Required: Independent Able to Maintain Weight Bearing Status No During Gait Assistive Devices Assistive Device None Gait Deviations General Gait Pattern Flexed Trunk Factors Limiting Gait Function Factors Limiting Gait Function Decreased Strength,Pain PT-OP-H Neuro Start: 11/05/23 08:13 Freq: Status: Active Protocol: Document 11/05/23 08:14 SAK (Rec: 11/05/23 17:05 SAK [id number]) Sensation Evaluation Gross Sensation Gross Sensation WNL Vital Signs Comments Vital Signs Comments not tested this date PT-OP-J Posture/Palpation/Skin Start: 11/05/23 08:13 Freq: Status: Active Protocol: Document 11/05/23 08:14 SAK (Rec: 11/05/23 09:02 [facility] [id number]) Posture Evaluation Position Standing Head/C-Spine Posture Forward Head T-Spine Posture Increased Kyphosis L-Spine Posture Increased Lordosis Pelvis Posture Anteriorly Tilted PT-OP-K Range of Motion Start: 11/05/23 08:13 Freq: Status: Active Protocol: Document 11/05/23 08:14 SAK (Rec: 11/05/23 17:07 [facility] [id number]) Lumbar Spine Range of Motion Lumbar Spine Active Flexion 40 Extension 45 Lateral Flexion Left 45 Lateral Flexion Right 45 Comments stands in excess lumbar lordosis PT-OP-L Special Tests Start: 11/05/23 08:13 Freq: Status: Active Protocol: Document 11/05/23 08:14 SAK (Rec: 11/05/23 17:07 SAK [id number]) Special Tests Lumbar Spine Special Tests Straight Leg Raise Test Results - Compression Test Results - Stork Test Test Results - PT-OP-M Strength Start: 11/05/23 08:13 Freq: Status: Active Protocol: Document 11/05/23 08:14 SAK (Rec: 11/05/23 09:02 SAK [id number]) Trunk Strength Trunk Manual Muscle Testing Flexion 3- Fair- Extension 3+ Fair+ Core Stabilization poor PT-OP-Q Treatments Start: 11/05/23 08:13 Freq: Status: Active Protocol: Document 12/20/23 09:05 [facility] (Rec: 12/20/23 09:46 [facility] [id number]) Therapeutic Exercises Supine Exercises hip flexor stretch Supine Exercise Name modified Marcos stretch edge of bed Side bilateral Reps/Minutes X2 one minute Comments with AROM knee flexion bug Supine Exercise Name on mat Reps/Minutes X2 and X3 Comments cues for neutral spine during LE>UE return, mid range Sitting Exercises butterfly Sitting Exercise Name stretch Reps/Minutes 2x30 Comments trunk flexion thigh press Comments 10x5 hip flex Equipment Used mirror to watch for compensation Reps/Minutes 10x Standing Exercises lift Side bilateral Reps/Minutes X8 X 4 Comments with self tactile cues, dowel, and band squat with band Standing Exercise Name chair squat Reps/Minutes 10x Comments cues for long spine, hip hinge . PT-OP-T Assessment and Plan Start: 11/05/23 08:13 Freq: Status: Active Protocol: Document 12/20/23 09:05 [facility] (Rec: 12/20/23 09:46 [facility] [id number]) Physical Therapy Assessment Goals core and hip muscle weakness Short Term Goal (STG) patient to be instructed in individualized progressive HEP for purposes of strengthening and core stabilization as well as correct body mechanics for lifting 12/20/23 STG Duration 12/14/23 Long-Term Goal (LTG) Patient to be independent and compliant with HEP and demonstrate improvement in muscle strength to at least 4+ /5 all muscle groups and demonstrate correct lifting form for back protection without c/o pain LTG Duration 02/05/24 Oswestry Disability index score Impairment 18% Coater Smoking Pipe Goal (LTG) Decrease score to no greater than 8% as measure of decreased pain and improved function LTG Duration 02/05/24 postural impairment Short Term Goal (STG) Instruct patient in neutral posture, rationale, and postural correction exercises for back protection and health 12/20/23: goal met STG Duration 12/15/23 Long-Term Goal (LTG) Patient to be able to demonstrate independent ability to perform postural correction exercises and demonstrate improved postural alignment statically, and dynamically with function LTG Duration 02/05/24 Progress Towards Goals Progress Towards Goals Progressing Toward Goals Assessment Summary Assessment Good progress toward goals, compliant to HEP. Min to no pain. Will be on a road trip for a few weeks, plan folow up appointment when he returns . Physical Therapy Plan Frequency and Duration Frequency of Treatment 2x/Week Duration of treatment (weeks) 12 Plan of Care Start Date 11/05/23 Plan of Care End Date 02/05/24 Next Visit Focus/Plan Next Note Type Treatment Note Next Visit Plan Follow up appointment, assess patient status, modify or upgrade HEP as needed and determine any further need for PT
--- NOTE | 2024-01-16 11:52 | PT.OTN ---
Current Diagnoses Spondylosis without myelopathy or radiculopathy, lumbar region (01/16/24) Spinal stenosis, lumbar region without neurogenic claudication (01/16/24) Abnormal posture (01/16/24) Weakness (01/16/24) Physical Therapy Treatment Note PT-OP-A Visit Information Start: 11/05/23 08:13 Freq: Status: Active Protocol: Document 01/16/24 11:18 SAK (Rec: 01/16/24 11:52 [facility] [id number]) Out-Patient Physical Therapy Visit Information Visit Information Visit Type Treatment Note Visit Start Time 11:19 Visit Stop Time 11:57 Visit Number 11 Evaluation Information Evaluation Date 11/05/23 PT-OP-B Current Condition Start: 11/05/23 08:13 Freq: Status: Active Protocol: Document 01/16/24 11:18 SAK (Rec: 01/16/24 11:52 [facility] [id number]) Current Condition History of Current Condition Onset Date 40 years History of Current Condition carrying wood to a third floor level, piling on extra wood, eventually severe pain, couldn 't straighten up. Never went to the doctor. Yaneth een going to chirorpractor, helpful for awhile. Occasional pain left groin to knee, tightness and cramping. Then referred to Dr Ericka Calderon. x-ray as below. Given Celecoxib and it decreases pain to minimal. Walks several times per week 1 hr, has treadmill, has weights. Prior Treatments and Tests IMPRESSION: 1. Multilevel degenerative disc disease and facet hypertrophy as well as epidural lipomatosis as described in detail in the body of the report. 2. Mild osseous edema adjacent to the bilateral L2-3 facets extending into the L3 pedicles is likely related to facet arthropathy although acute trabecular bone injury is not excluded. 3. Synovial cyst is seen at the right L2-3 facet that mildly impinges upon the dorsal thecal sac and results in only mild narrowing of the spinal canal. PT-OP-C Subjective Start: 11/05/23 08:13 Freq: Status: Active Protocol: Document 01/16/24 11:18 SAK (Rec: 01/16/24 11:52 [facility] [id number]) OP-PT Subjective Patient Comments Patient Comments Overall minimal pain since last seen, even after some heavy work at home, a lot better. Still taking arthritis medication. Trying to do exercises most days, but has been travelling. Doing aging backward video exercise DVD series. PT-OP-F Manual Assessment Start: 11/05/23 08:13 Freq: Status: Active Protocol: Document 11/05/23 08:14 SAK (Rec: 11/05/23 17:05 [facility] [id number]) Manual Assessments Soft Tissue Assessment Soft Tissue Mobility Assessment increased tightness bilateral lumbar paraspinals PT-OP-G Mobility & Gait Start: 11/05/23 08:13 Freq: Status: Active Protocol: Document 11/05/23 08:14 SAK (Rec: 11/05/23 17:05 [facility] [id number]) OP Gait Assessment Gait Gait Assistance Required: Independent Able to Maintain Weight Bearing Status No During Gait Assistive Devices Assistive Device None Gait Deviations General Gait Pattern Flexed Trunk Factors Limiting Gait Function Factors Limiting Gait Function Decreased Strength,Pain PT-OP-H Neuro Start: 11/05/23 08:13 Freq: Status: Active Protocol: Document 11/05/23 08:14 SAK (Rec: 11/05/23 17:05 [facility] [id number]) Sensation Evaluation Gross Sensation Gross Sensation WNL Vital Signs Comments Vital Signs Comments not tested this date PT-OP-J Posture/Palpation/Skin Start: 11/05/23 08:13 Freq: Status: Active Protocol: Document 11/05/23 08:14 SAK (Rec: 11/05/23 09:02 [facility] [id number]) Posture Evaluation Position Standing Head/C-Spine Posture Forward Head T-Spine Posture Increased Kyphosis L-Spine Posture Increased Lordosis Pelvis Posture Anteriorly Tilted PT-OP-K Range of Motion Start: 11/05/23 08:13 Freq: Status: Active Protocol: Document 11/05/23 08:14 SAK (Rec: 11/05/23 17:07 [facility] [id number]) Lumbar Spine Range of Motion Lumbar Spine Active Flexion 40 Extension 45 Lateral Flexion Left 45 Lateral Flexion Right 45 Comments stands in excess lumbar lordosis PT-OP-L Special Tests Start: 11/05/23 08:13 Freq: Status: Active Protocol: Document 11/05/23 08:14 SAK (Rec: 11/05/23 17:07 [facility] [id number]) Special Tests Lumbar Spine Special Tests Straight Leg Raise Test Results - Compression Test Results - Stork Test Test Results - PT-OP-M Strength Start: 11/05/23 08:13 Freq: Status: Active Protocol: Document 11/05/23 08:14 [facility] (Rec: 11/05/23 09:02 [facility] [id number]) Trunk Strength Trunk Manual Muscle Testing Flexion 3- Fair- Extension 3+ Fair+ Core Stabilization poor PT-OP-Q Treatments Start: 11/05/23 08:13 Freq: Status: Active Protocol: Document 01/16/24 11:18 [facility] (Rec: 01/16/24 11:52 [facility] [id number]) Therapeutic Exercises Supine Exercises head lift Reps/Minutes 10x Comments cues for core stab, discont if unable to keep ab from moving upward Standing Exercises lift Side bilateral Reps/Minutes X8 X 4 Comments with self tactile cues, dowel, and band squat with band Standing Exercise Name chair squat Reps/Minutes 10x Comments cues for long spine, hip hinge . sit to stand Standing Exercise Name STS > squat mechanics Reps/Minutes 10x X2 wall posture Standing Exercise Name with segmental roll up and roll down, arms at side Reps/Minutes 5 min Comments Max cues ft back more toward wall flat (no heel raise), PPT , head retract Manual Therapy Treatment Consent Patient gave verbal consent for manual Yes treatment Other Other Manual Treatments edwina LE MMT Self-Care/Home Management Treatment Education Patient Education Body Mechanics,Home Exercise Program,Joint Protection, Posture PT-OP-T Assessment and Plan Start: 11/05/23 08:13 Freq: Status: Active Protocol: Document 01/16/24 11:18 [facility] (Rec: 01/16/24 11:52 [facility] [id number]) Physical Therapy Assessment Goals core and hip muscle weakness Short Term Goal (STG) patient to be instructed in individualized progressive HEP for purposes of strengthening and core stabilization as well as correct body mechanics for lifting 12/20/23 STG Duration 12/14/23 Psychology Technician Goal (LTG) Patient to be independent and compliant with HEP and demonstrate improvement in muscle strength to at least 4+ /5 all muscle groups and demonstrate correct lifting form for back protection without c/o pain LTG Duration 02/05/24 Oswestry Disability index score Impairment 18% Custodial Goal (LTG) Decrease score to no greater than 8% as measure of decreased pain and improved function LTG Duration goal met postural impairment Short Term Goal (STG) Instruct patient in neutral posture, rationale, and postural correction exercises for back protection and health 12/20/23: goal met STG Duration goal met Custodial Goal (LTG) Patient to be able to demonstrate independent ability to perform postural correction exercises and demonstrate improved postural alignment statically, and dynamically with function LTG Duration goal met Progress Towards Goals Progress Towards Goals Goals Met Assessment Summary Assessment Patient has met all PT goals, no further need for PT at this time. Patient agreeable to discharge. Good compliance to [facility] Physical Therapy Plan Discharge Physical Therapy Discharge Reasons Goals Met
== END 2024-01-18 15:31 ==
LOC: PHYS 11:15
PROVIDERS: Family Provider Internal Medicine; PCP Internal Medicine; Referring Provider Physical Medicine & Rehabilitation; Visit Provider Physical Medicine & Rehabilitation
DX: M47.816 Spondylosis without myelopathy or radiculopathy, lumbar region (principal); M48.061 Spinal stenosis, lumbar region without neurogenic claudication; R29.3 Abnormal posture; R53.1 Weakness
CPT/HCPCS: 97110; 97140; 97162; 97530; 97535

== ENCOUNTER → 2024-02-04 11:19 | Outpatient (CLI) | payer MEDICARE, SELFPAY ==
--- NOTE | 2024-02-04 11:20 | DI.US.S_ITS ---
PROCEDURE: US SCROTUM INDICATIONS: scrotal mass TECHNIQUE: Real-time scanning was performed of the scrotum and testicles, with image documentation. Color and pulse Doppler interrogation was performed of both testicles. COMPARISON: None. FINDINGS: Right: Testicle is normal in size at 4 x 1.7 x 2.9 cm, and homogenous in echotexture. Epididymis is normal in overall size and demonstrates epididymal cysts that measure up to 9 mm. No hydrocele or varicoceles. Overlying scrotal skin is normal in thickness. Left: Testicle is normal in size at 3.6 x 1.8 x 2.6 cm, and homogeneous in echotexture. Epididymis is normal in overall size and demonstrates epididymal cysts that measure up to 5 mm. No hydrocele. There is a left-sided varicocele seen, with the largest vessel measuring up to a 3 mm. Overlying scrotal skin is normal in thickness. A fat containing left inguinal hernia is seen. Doppler: Color and pulse Doppler demonstrate normal and symmetric arterial flow in both testicles. IMPRESSION: Fat containing left inguinal hernia. - Surgical consultation is recommended. Normal appearing testicles, without masses. Left-sided varicocele noted. Bilateral epididymal head cysts incidentally noted. Dictated by: Price Triplett M.D. on 02/04/2024 at 20:54 Approved by: Price Triplett M.D. on 02/04/2024 at 20:57
== END ==
PROVIDERS: Family Provider Internal Medicine; PCP Internal Medicine; Referring Provider Family Medicine; Visit Provider Family Medicine
DX: N50.89 Other specified disorders of the male genital organs (principal); K40.90 Unilateral inguinal hernia, without obstruction or gangrene, not specified as recurrent; I86.1 Scrotal varices; N50.3 Cyst of epididymis
CPT/HCPCS: 76870

== ENCOUNTER → 2024-06-16 09:41 | Outpatient (CLI) | payer MEDICARE, SELFPAY ==
[2024-06-16 11:08] LABS: Add Manual Diff / Slide Review NO; Basophils Absolute Auto 100 /uL (0-100); Basophils Percent Auto 0.8 % (0-2); Eosinophils Absolute Auto 100 /uL (0-450); Eosinophils Percent Auto 1.1 % (2-4); Hematocrit 45.7 % (41-53); Lymphocytes Absolute Auto 2000 /uL (1100-4500); Lymphocytes Percent Auto 32.7 % (25-40); Mean Corpuscular Hemoglobin 32.1 PG (26-34); Mean Corpuscular Volume 91.6 fL (80-100); Monocytes Absolute Auto 400 /uL (0-900); Monocytes Percent Auto 6.6 % (3-14); Neutrophils Absolute Auto 3600 /uL (1500-7000); Neutrophils Percent Auto 58.8 % (50-75); Platelet Count 161 X10^3/uL (150-400); Red Cell Distribution Width 13.4 % (11.6-14.8); White Blood Cell Count 6.2 X10^3/uL (4.5-11.0)
[2024-06-16 11:40] LABS: Alanine Aminotransferase 41 IU/L (<50); Albumin 4.1 g/dL (3.5-5.0); Albumin Globulin Ratio 2.1 (1.0-2.8); Alkaline Phosphatase 94 U/L (38-126); Aspartate Aminotransferase 37 IU/L (17-59); BUN Creatinine Ratio 18.9 (6-22); Bilirubin Total 0.9 mg/dL (0.2-1.3); Blood Urea Nitrogen 17 mg/dL (9-20); Calcium 9.6 mg/dL (8.4-10.2); Carbon Dioxide 30 mmol/L (22-32); Chloride 105 mmol/L (98-107); Cholesterol 120 mg/dL (140-199); Estimated Glomerular Filt Rate > 60 mL/min (>60); Glucose 110 mg/dL (80-110); HDL Cholesterol 35 mg/dL (40-60); HEMOLYSIS < 15 (0-50); LDL Cholesterol Calculated 61 mg/dL (<100); Potassium 4.7 mmol/L (3.4-5.1); Sodium 140 mmol/L (137-145); Total Protein 6.1 g/dL (6.3-8.2); Triglycerides 118 mg/dL (35-150)
[2024-06-16 12:09] LABS: TSH w/ Reflex to FT4 2.37 uIU/mL (0.47-4.68)
[2024-06-16 12:11] LABS: Prostate Specific Antigen 5.73 ng/mL (0.10-4.00)
== END ==
PROVIDERS: Family Provider Internal Medicine; PCP Internal Medicine; Referring Provider Internal Medicine; Visit Provider Internal Medicine
DX: I10 Essential (primary) hypertension (principal); R97.20 Elevated prostate specific antigen [PSA]; Z00.00 Encounter for general adult medical examination without abnormal findings
CPT/HCPCS: 36415; 80053; 80061; 84153; 84443; 85025

== ENCOUNTER → 2024-08-26 08:20 | Outpatient (CLI) | payer MEDICARE, SELFPAY ==
[2024-08-15 12:11] VITALS: BMI 31.7
[2024-08-26 11:20] LABS: Adenovirus F 40/41 Not Detected (Not Detect); Astrovirus Not Detected (Not Detect); Campylobacter Not Detected (Not Detect); Clostridium difficile toxin AB Not Detected (Not Detect); Cryptosporidium Not Detected (Not Detect); Cyclospora cayetanensis Not Detected (Not Detect); Entamoeba histolytica Not Detected (Not Detect); Enteroaggregative E.coli Not Detected (Not Detect); Enteropathogenic E.coli Not Detected (Not Detect); Enterotoxigenic E.coli It/st Not Detected (Not Detect); Giardia lamblia Not Detected (Not Detect); Norovirus GI/GII Not Detected (Not Detect); Plesiomonsa shigelloides Not Detected (Not Detect); Rotavirus A Not Detected (Not Detect); Salmonella Not Detected (Not Detect); Sapovirus Not Detected (Not Detect); Shiga-like toxin-prod E.coli Not Detected (Not Detect); Shigella/Enteroinvasive E.coli Not Detected (Not Detect); Vibrio Not Detected (Not Detect); Vibrio cholerae Not Detected (Not Detect); Yersinia enterocolitica Not Detected (Not Detect)
== END ==
LOC: LAB 03-16 12:29
PROVIDERS: PCP Internal Medicine; Referring Provider Surgery; Visit Provider Surgery
DX: K40.90 Unilateral inguinal hernia, without obstruction or gangrene, not specified as recurrent (principal)
CPT/HCPCS: 87507

== ENCOUNTER → 2024-08-28 16:28 | Outpatient (CLI) | payer MEDICARE, SELFPAY ==
[2024-08-28 17:09] LABS: Add Manual Diff / Slide Review NO; Basophils Percent Auto 0.2 % (0-2); Eosinophils Percent Auto 1.3 % (2-4); Lymphocytes Percent Auto 29.5 % (25-40); Mean Corpuscular HGB Conc 34.8 % (30-36); Mean Corpuscular Hemoglobin 31.7 PG (26-34); Monocytes Percent Auto 7.3 % (3-14); Neutrophils Percent Auto 61.7 % (50-75); Platelet Count 193 X10^3/uL (150-400); Red Blood Cell Count 5.06 X10^6/uL (4.5-5.9); Red Cell Distribution Width 13.1 % (11.6-14.8)
[2024-08-28 17:10] LABS: Basophils Absolute Auto 0 /uL (0-100); Eosinophils Absolute Auto 100 /uL (0-450); Lymphocytes Absolute Auto 2400 /uL (1100-4500); Monocytes Absolute Auto 600 /uL (0-900); Neutrophils Absolute Auto 4900 /uL (1500-7000)
[2024-08-28 17:44] LABS: Alanine Aminotransferase 48 IU/L (<50); Albumin 4.4 g/dL (3.5-5.0); Albumin Globulin Ratio 1.9 (1.0-2.8); Alkaline Phosphatase 96 U/L (38-126); Aspartate Aminotransferase 31 IU/L (17-59); BUN Creatinine Ratio 18.8 (6-22); Bilirubin Total 0.9 mg/dL (0.2-1.3); Blood Urea Nitrogen 16 mg/dL (9-20); Calcium 9.4 mg/dL (8.4-10.2); Carbon Dioxide 25 mmol/L (22-32); Chloride 105 mmol/L (98-107); Estimated Glomerular Filt Rate > 60 mL/min (>60); Globulin 2.3 g/dL (1.7-4.1); Glucose 85 mg/dL (80-110); HEMOLYSIS < 15 (0-50); Sodium 139 mmol/L (137-145); Total Protein 6.7 g/dL (6.3-8.2)
[2024-08-28 18:13] LABS: TSH w/ Reflex to FT4 1.05 uIU/mL (0.47-4.68)
== END ==
LOC: LAB 16:29
PROVIDERS: Family Provider Internal Medicine; PCP Internal Medicine; Referring Provider Internal Medicine; Visit Provider Internal Medicine
DX: R19.7 Diarrhea, unspecified (principal); R19.37 Generalized abdominal rigidity
CPT/HCPCS: 36415; 80053; 84443; 85025

== ENCOUNTER → 2024-12-10 09:07 | Outpatient (CLI) | payer MEDICARE, SELFPAY ==
--- NOTE | 2024-12-10 09:08 | DI.ECHO.S_ITS ---
[facility] : : [id number] : [address] : : [id number] : : Phone: [phone] Echocardiogram Report + + :Name: CANDIE JON Study Date: 12/10/2024 Height: 68 in : :[facility] ReadingLocation: Weight: 199 lb : : Gender: Male BSA: 2.0 m2 : :: 1955 Age: 69 yrs BP: 187/76 mmHg: :Reason For Study: HYPERTROPHIC CARDIOMYOPATHY : :Ordering Physician: BENITO, : :MING Performed By: Viet Adair : :Referring: MING NOVOA : + + Interpretation Summary 1) Severe septal hypertrophy (septal thickness 2.0cm, posterior wall thickness 1.0cm) with normal size, wall motion, and systolic function (EF 65-70%). 2) Mildly enlarged right ventricle with normal function. 3) There is no echo evidence for significant left ventricular outflow tract obstruction. 4) There is systolic anterior motion of the chordal apparatus 5) No significant valvular stenosis or regurgitation prsent. 6) Compared to the Echo done 11/02/2022, no significant change. Procedure: A two-dimensional transthoracic echocardiogram with color flow and Doppler was performed. The study quality was technically good. Comparison is made with the echocardiogram of 11/02/2022. The patient was in normal sinus rhythm during the exam. Left Ventricle: The left ventricle is normal in size. There is severe asymmetric left ventricular hypertrophy. There is no echo evidence for significant left ventricular outflow tract obstruction. There is no ventricular septal defect visualized. The ejection fraction is estimated to be 65-70%. There are no focal wall motion abnormalities. Diastolic parameters suggest a pseudonormalization pattern, consistent with probable elevated filling pressures. Right Ventricle: The right ventricle is mildly dilated. The right ventricular systolic function is normal. Atria: The left atrium is moderately dilated. The right atrium is mildly dilated. Mitral Valve: The mitral valve leaflets appear mildly thickened, but open well. There is trace mitral regurgitation. Aortic Valve: The aortic valve is trileaflet. The aortic valve opens well. There is no aortic valve stenosis. There is trace aortic regurgitation. Tricuspid Valve: The tricuspid valve leaflets are thin and pliable. There is trace tricuspid regurgitation. The right ventricular systolic pressure is estimated to be at least 27 mmHg based on an estimated right atrial pressure of 3 mm Hg. Pulmonic Valve: The pulmonic valve is not well seen, but is grossly normal. There is trace pulmonic regurgitation. Great Vessels: The aortic root is normal size. The dimensions of the ascending aorta are normal. The pulmonary artery is normal size. The IVC is of normal diameter and collapses greater than 50% with a sniff. This suggests a low right atrial pressure of 3 mm Hg. Pericardium/ Pleura There is no pericardial effusion. There is no pleural effusion. MMode/2D Measurements & Calculations LVIDd: 5.0 cm LVOT diam: 2.2 cm LVIDs: 2.8 cm Ao root diam: 3.3 cm FS: 43.6 % asc Aorta Diam: 3.0 cm EPSS: 0.45 cm IVSd: 2.0 cm LVPWd: 1.0 cm LV foster. diameter/BSA (cm/m^2): 2.5 LV sys. diameter/BSA (cm/m^2): 1.4 LA A2 area: 26.3 cm2 RA long axis: 5.4 cm LA A4 area: 27.4 cm2 RA area: 21.8 cm2 LA length (vol): 6.3 cm RA vol: 74.2 ml LA vol: 96.6 ml RA : 36.4 ml/m2 LA vol index: 47.4 ml/m2 IVC diam: 1.6 cm RVD1 (basal): 4.5 cm RVD2 (mid): 3.1 cm TAPSE: 3.6 cm Doppler Measurements & Calculations Ao V2 max: 173.9 cm/sec LVOT Max Mc: 134.9 cm/sec Ao V2 mean: 133.4 cm/sec LV V1 max P.3 mmHg Ao max P.1 mmHg LV V1 VTI: 41.2 cm Ao mean P.7 mmHg LANIE(I,D): 3.2 cm2 Ao V2 VTI: 50.2 cm LANIE(V,D): 3.0 cm2 sev ratio: 0.82 LANIE indexed to BSA (cm^2/m^2): 1.6 AI P1/2t: 691.1 msec AI dec slope: 164.6 cm/sec2 MV E max mc: 82.4 cm/sec TR max mc: 246.3 cm/sec MV A max mc: 123.9 cm/sec TR max P.3 mmHg MV E/A: 0.66 PA V2 max: 158.5 cm/sec Med Peak E' Mc: 5.1 cm/sec PA V2 mean: 107.4 cm/sec E/E' med: 16.1 PA mean P.3 mmHg Lat Peak E' Mc: 5.2 cm/sec PA pr(Accel): 55.9 mmHg E/E' lat: 15.8 E/e' average: 16.0 MV dec time: 0.23 sec SV(LVOT): 161.9 ml Reading Physician:05:15 PM
== END ==
LOC: ECHO 09:07
PROVIDERS: Family Provider Internal Medicine; PCP Internal Medicine; Referring Provider Internal Medicine Cardiovascular Disease; Visit Provider Internal Medicine Cardiovascular Disease
DX: I42.2 Other hypertrophic cardiomyopathy (principal)
CPT/HCPCS: 93306